=== PATIENT | male | born 1955 | race Caucasian/White ===

== ENCOUNTER 2020-07-14 10:01 | Outpatient (REF) | payer BC, SELFPAY ==
[2020-07-14 14:28] LABS: Alanine Aminotransferase 36 U/L (0-40); Albumin Level 4.2 g/dL (3.5-5.0); Alkaline Phosphatase 73 U/L (39-117); Anion Gap 11 (12-20); Aspartate Amino Transferase 27 U/L (5-37); Bilirubin Total 0.4 mg/dL (0.0-1.0); Blood Urea Nitrogen 9 mg/dL (9-16); Calcium 8.9 mg/dL (8.4-10.2); Carbon Dioxide 31 mmol/L (22-29); Chloride 101 mmol/L (96-108); Cholesterol 183 mg/dL; Estimated Glomerular Filt Rate > 60; Glucose Fasting 125 mg/dL (60-99); HDL Cholesterol 48 mg/dL; LDL Cholesterol Calculated 83 mg/dl; Potassium 4.1 mmol/l (3.3-5.1); Sodium 139 mmol/L (135-145); Total Protein 7.3 g/dL (6.5-8.0); Triglycerides 261 mg/dL
[2020-07-14 14:49] LABS: TSH reflex Free T4 1.91 mIU/mL (0.32-4.0); Vitamin D 25-OH Total 24.2 ng/mL (>30)
== END 2020-07-14 10:02 | disposition home or self-care (01) ==
LOC: HO.WFDLDS 10:01
PROVIDERS: Visit Provider Family Medicine
DX: F41.9 Anxiety disorder, unspecified (principal); E78.5 Hyperlipidemia, unspecified; E55.9 Vitamin D deficiency, unspecified; Z00.00 Encounter for general adult medical examination without abnormal findings
CPT/HCPCS: 80053; 80061; 82306; 84443

== ENCOUNTER → 2020-07-30 11:07 | Outpatient (BNVA) | payer BC, SELFPAY | PROVIDERS: PCP Family Medicine; Referring Provider Family Medicine; Visit Provider Nurse Practitioner Family | DX: Z76.89 Persons encountering health services in other specified circumstances (principal) ==

== ENCOUNTER → 2020-08-27 13:36 | Outpatient (BNVA) | payer BC, SELFPAY | PROVIDERS: PCP Family Medicine; Visit Provider Nurse Practitioner Family | DX: Z76.89 Persons encountering health services in other specified circumstances (principal) ==

== ENCOUNTER → 2020-12-02 12:56 | Outpatient (BNVA) | payer BC, SELFPAY | PROVIDERS: PCP Family Medicine; Visit Provider Nurse Practitioner Family ==

== ENCOUNTER 2020-12-16 13:41 | Outpatient (REF) | payer BC, SELFPAY ==
--- NOTE | ~2020-12-16 | US_ITS ---
EXAMINATION: US ABDOMEN COMPLETE CLINICAL INFORMATION: Abdominal gaseous distention. COMPARISON: None TECHNIQUE: Real-time imaging of the abdominal viscera. FINDINGS: PANCREAS: Obscured by bowel gas. ABDOMINAL AORTA: The proximal, mid, and distal segments are normal in caliber. INFERIOR VENA CAVA: Visualized portions are normal. LIVER: The liver contour is normal. Diffuse increased echogenicity. Probable focal fatty sparing adjacent to the gallbladder. No focal hepatic lesion. There is no intrahepatic biliary duct dilatation seen. GALLBLADDER: Normal. The gallbladder is physiologically distended without evidence of stones, sludge, polyps, wall thickening or pericholecystic fluid. COMMON BILE DUCT: Normal in caliber measuring 0.3 cm in diameter. RIGHT KIDNEY: Normal. No hydronephrosis. No renal calculi or focal parenchymal lesions. The kidney measures 10.4 cm in maximum dimension. LEFT KIDNEY: Normal. No hydronephrosis. No renal calculi or focal parenchymal lesions. The kidney measures 10.6 cm in maximum dimension. SPLEEN: Normal. The spleen measures 11.4 cm in maximum dimension. FREE FLUID: None. US/US abdomen complete IMPRESSION: 1. There is generalized increase in hepatic echotexture, consistent with fatty infiltration or hepatocellular disease. Please correlate clinically. Hypoechogenicity adjacent to the gallbladder probably reflecting focal fatty sparing. No focal hepatic mass or intrahepatic biliary duct dilatation is seen. 2. Pancreas obscured by bowel gas.
== END 2020-12-16 13:42 | disposition home or self-care (01) ==
LOC: HO.US 13:41
PROVIDERS: PCP Family Medicine; Visit Provider Nurse Practitioner Family
DX: R14.0 Abdominal distension (gaseous) (principal)
CPT/HCPCS: 76700

== ENCOUNTER 2020-12-24 10:25 | Outpatient (REF) | payer BC, SELFPAY ==
[2020-12-24 14:09] LABS: Hematocrit 41.9 % (42-52); Hemoglobin 14.3 g/dl (14.0-18.0); Mean Corpuscular HGB Conc 34.1 g/dl (31.0-36.0); Mean Corpuscular Hemoglobin 30.7 pg (27.0-33.0); Mean Corpuscular Volume 89.9 fL (80-98); Mean Platelet Volume 11.5 fL (9.4-12.4); Platelet Count 152 X10*3/uL (160-400); Red Blood Count 4.66 X10*6/uL (4.60-5.80); Red Cell Distribution Width 12.3 % (11.0-16.0); White Blood Count 7.9 X10*3/uL (4.8-10.8)
[2020-12-24 14:25] LABS: Alanine Aminotransferase 27 U/L (0-40); Albumin Level 4.4 g/dL (3.5-5.0); Alkaline Phosphatase 57 U/L (39-117); Anion Gap 12 (12-20); Aspartate Amino Transferase 26 U/L (5-37); Bilirubin Total 0.9 mg/dL (0.0-1.0); Blood Urea Nitrogen 15 mg/dL (9-16); Calcium 9.6 mg/dL (8.4-10.2); Carbon Dioxide 31 mmol/L (22-29); Chloride 102 mmol/L (96-108); Estimated Glomerular Filt Rate > 60; Glucose Random 116 mg/dL (60-115); Potassium 4.3 mmol/L (3.3-5.1); Sodium 141 mmol/L (135-145); Total Protein 7.4 g/dL (6.5-8.0)
== END 2020-12-24 10:26 | disposition home or self-care (01) ==
LOC: HO.WFDLDS 10:25
PROVIDERS: Visit Provider Nurse Practitioner Family
DX: K21.9 Gastro-esophageal reflux disease without esophagitis (principal); R14.0 Abdominal distension (gaseous)
CPT/HCPCS: 36415; 80053; 85027

== ENCOUNTER 2021-05-16 08:40 | Outpatient (REF) | payer BC, SELFPAY ==
[2021-05-16 12:40] LABS: Cholesterol 149 mg/dL; HDL Cholesterol 48 mg/dL; LDL Cholesterol Calculated 68 mg/dl; Triglycerides 169 mg/dL
== END 2021-05-16 08:41 | disposition home or self-care (01) ==
LOC: HO.WFDLDS 08:40
PROVIDERS: PCP Family Medicine; Visit Provider Family Medicine
DX: E78.5 Hyperlipidemia, unspecified (principal)
CPT/HCPCS: 36415; 80061

== ENCOUNTER 2021-09-06 08:07 | Outpatient (REF) | payer BC, SELFPAY ==
[2021-09-06 12:03] LABS: Alanine Aminotransferase 27 U/L (0-40); Albumin Level 4.1 g/dL (3.5-5.0); Alkaline Phosphatase 60 U/L (39-117); Anion Gap 11 (12-20); Aspartate Amino Transferase 25 U/L (5-37); Bilirubin Total 0.5 mg/dL (0.0-1.0); Blood Urea Nitrogen 12 mg/dL (9-16); Calcium 9.7 mg/dL (8.4-10.2); Carbon Dioxide 29 mmol/L (22-29); Chloride 105 mmol/L (96-108); Cholesterol 172 mg/dL; Estimated Glomerular Filt Rate > 60; Glucose Fasting 122 mg/dL (60-99); HDL Cholesterol 38 mg/dL; LDL Cholesterol Calculated 85 mg/dl; Potassium 4.3 mmol/L (3.3-5.1); Sodium 141 mmol/L (135-145); Total Protein 7.4 g/dL (6.5-8.0); Triglycerides 247 mg/dL
== END 2021-09-06 08:08 | disposition home or self-care (01) ==
LOC: HO.WFDLDS 08:07
PROVIDERS: Visit Provider Family Medicine
DX: Z00.00 Encounter for general adult medical examination without abnormal findings (principal); I10 Essential (primary) hypertension
CPT/HCPCS: 36415; 80048; 80053; 80061; 84443

== ENCOUNTER 2022-03-08 07:43 | Outpatient (REF) | payer BC, SELFPAY ==
[2022-03-08 11:42] LABS: Estimated Average Glucose 120 mg/dL; Hemoglobin A1c % 5.8 %
[2022-03-08 12:15] LABS: Prostate Specific Antigen Scr 1.53 ng/mL (<0.05-4.0); Vitamin D 25-OH Total 74.5 ng/mL (>30)
== END 2022-03-08 07:44 | disposition home or self-care (01) ==
LOC: HO.WFDLDS 07:43
PROVIDERS: PCP Family Medicine; Visit Provider Family Medicine
DX: E55.9 Vitamin D deficiency, unspecified (principal); R73.01 Impaired fasting glucose; Z12.5 Encounter for screening for malignant neoplasm of prostate
CPT/HCPCS: 36415; 82306; 83036; 84153

== ENCOUNTER 2022-05-26 08:25 | Outpatient (REF) | payer BC, SELFPAY ==
[2022-05-26 12:07] LABS: Cholesterol 162 mg/dL; HDL Cholesterol 42 mg/dL; LDL Cholesterol Calculated 91 mg/dl; Triglycerides 147 mg/dL
== END 2022-05-26 08:26 | disposition home or self-care (01) ==
LOC: HO.WFDLDS 08:25
PROVIDERS: Visit Provider Family Medicine
DX: Z00.00 Encounter for general adult medical examination without abnormal findings (principal); E78.5 Hyperlipidemia, unspecified
CPT/HCPCS: 36415; 80061

== ENCOUNTER 2022-08-28 07:56 | Outpatient (REF) | payer BC, SELFPAY ==
[2022-08-28 11:16] LABS: MANUAL DIFF FLAG NO
[2022-08-28 11:31] LABS: Basophils Percent Auto 0.1 % (0-2); Eosinophils Absolute Auto 0.1 X10*3/uL (0.0-0.4); Eosinophils Percent Auto 1.3 % (0-4); Hemoglobin 13.6 g/dl (14.0-18.0); Imm Gran Abs Auto 0.02 X10*3/uL (0.00-0.03); Imm Gran Pct Auto 0.2 % (0.0-0.4); Lymphocytes Absolute Auto 3.9 X10*3/uL (1.2-4.9); Lymphocytes Percent Auto 45.8 % (20-40); Mean Corpuscular Hemoglobin 30.6 pg (27.0-33.0); Mean Corpuscular Volume 90.1 fL (80.0-98.0); Mean Platelet Volume 11.2 fL (9.4-12.4); Monocytes Absolute Auto 0.5 X10*3/uL (0.1-1.2); Monocytes Percent Auto 6.2 % (2-11); Neutrophils Absolute Auto 3.9 x10*3/uL (2.0-8.3); Neutrophils Percent Auto 46.4 % (45-73); Platelet Count 182 X10*3/uL (160-400); Red Blood Count 4.44 X10*6/uL (4.60-5.80); Red Cell Distribution Width 11.9 % (11.0-16.0); White Blood Count 8.4 X10*3/uL (4.8-10.8)
[2022-08-28 11:48] LABS: Anion Gap 14 (12-20)
[2022-08-28 11:53] LABS: Alanine Aminotransferase 35 U/L (0-40); Albumin Level 4.4 g/dL (3.5-5.0); Alkaline Phosphatase 61 U/L (39-117); Aspartate Amino Transferase 28 U/L (5-37); Bilirubin Total 0.7 mg/dL (0.0-1.0); Calcium 9.7 mg/dL (8.4-10.2); Carbon Dioxide 27 mmol/L (22-29); Chloride 103 mmol/L (96-108); Estimated Glomerular Filt Rate > 60; Glucose Fasting 142 mg/dL (60-99); Potassium 3.9 mmol/L (3.3-5.1); Sodium 140 mmol/L (135-145); Total Protein 7.2 g/dL (6.5-8.0)
[2022-08-28 12:16] LABS: Prostate Specific Antigen Scr 1.15 ng/mL (<0.05-4.0)
[2022-08-28 12:46] LABS: Blood Urea Nitrogen 15 mg/dL (9-16)
== END 2022-08-28 07:57 | disposition home or self-care (01) ==
LOC: HO.WFDLDS 07:56
PROVIDERS: Visit Provider Family Medicine
DX: Z00.00 Encounter for general adult medical examination without abnormal findings (principal); Z12.5 Encounter for screening for malignant neoplasm of prostate
CPT/HCPCS: 36415; 80053; 84153; 84443; 85025

== ENCOUNTER 2022-10-13 08:34 | Outpatient (REF) | payer BC, SELFPAY ==
[2022-10-13 11:28] LABS: MANUAL DIFF FLAG NO
[2022-10-13 11:52] LABS: Basophils Percent Auto 0.1 % (0-2); Eosinophils Absolute Auto 0.1 X10*3/uL (0.0-0.4); Eosinophils Percent Auto 1.7 % (0-4); Hematocrit 41.5 % (42.0-52.0); Hemoglobin 13.8 g/dl (14.0-18.0); Imm Gran Abs Auto 0.01 X10*3/uL (0.00-0.03); Imm Gran Pct Auto 0.1 % (0.0-0.4); Immature Retic Fraction 14.4 % (2.3-13.4); Lymphocytes Absolute Auto 3.4 X10*3/uL (1.2-4.9); Lymphocytes Percent Auto 46.9 % (20-40); Mean Corpuscular HGB Conc 33.3 g/dl (31.0-36.0); Mean Corpuscular Hemoglobin 30.7 pg (27.0-33.0); Mean Corpuscular Volume 92.4 fL (80.0-98.0); Mean Platelet Volume 11.7 fL (9.4-12.4); Monocytes Absolute Auto 0.5 X10*3/uL (0.1-1.2); Monocytes Percent Auto 6.9 % (2-11); Neutrophils Absolute Auto 3.2 x10*3/uL (2.0-8.3); Neutrophils Percent Auto 44.3 % (45-73); Platelet Count 172 X10*3/uL (160-400); Red Blood Count 4.49 X10*6/uL (4.60-5.80); Red Cell Distribution Width 12.5 % (11.0-16.0); Retic HGB Equivalent 36.3 pg (30.0-35.0); Reticulocyte Percent 2.5 % (0.5-1.8); Reticulocytes Absolute 0.114 X10*6/uL (0.026-0.095); White Blood Count 7.2 X10*3/uL (4.8-10.8)
[2022-10-13 12:26] LABS: Iron 136 mcg/dL (45-160); Percent Iron Saturation 46 % (15-50); Total Iron Binding Capacity 294 mcg/dL (228-428); Unsaturated Iron Binding 158 ug/dL
[2022-10-13 12:41] LABS: Ferritin 497 ng/mL (20-250); Folate 13.3 ng/mL (> or = 4.0); Vitamin B12 255 pg/mL (200-900)
== END 2022-10-13 08:35 | disposition home or self-care (01) ==
LOC: HO.WFDLDS 08:34
PROVIDERS: Visit Provider Family Medicine
DX: Z00.00 Encounter for general adult medical examination without abnormal findings (principal); D64.9 Anemia, unspecified; E53.8 Deficiency of other specified B group vitamins
CPT/HCPCS: 36415; 82607; 82728; 82746; 83540; 85025; 85045

== ENCOUNTER → 2022-11-20 14:01 | Outpatient (REF) | payer BC, SELFPAY ==
--- NOTE | 2022-11-20 14:04 | CA_ITS ---
Acquisition Time: 2022-11-20 14:18:08 Total Exercise Time: 00:00:57 Test Indications: R07.9 - Chest pain, unspecified Medications: Protocol: JAGRUTI Max HR: 114 BPM 75% of Pred: 151 BPM Max BP: 158/078 mmHG Max Work Load: 2.7 METS Exercise stress test exercise with two attempts of Jagruti protocol 1 min 40 sec then 57 sec and unable to coordinate walking on treadmil, with mild SOB, no chest discomfort, with artifact but no noted arrythmia, with normotensive response to exercise, with nondiagnostic EKG for ischemia due to suboptimal heart rate and exercise time. Test reviewed with Dr. Wilks. Message sent to PCP with report and recommendation for a pharmacological nuclear stress test if warranted Referred By: Varinder Murillo Overread By: JAKE LLAMAS
== END ==
LOC: HO.CARD 14:01
PROVIDERS: PCP Family Medicine; Visit Provider Family Medicine
DX: R07.9 Chest pain, unspecified (principal)
CPT/HCPCS: 93017

== ENCOUNTER 2023-03-07 14:19 | Outpatient (AMB) | payer BC, SELFPAY ==
--- NOTE | 2023-03-07 14:35 | MHC.OFFVIS ---
Intake Vital Signs 03/07/23 14:36 Height 5 ft 11 in Weight 172 lb 6.424 oz BMI 24.0 BP 130/80 Blood Pressure Location Lt brachial Position Sitting Pulse 67 Intake Visit Reasons: Colonoscopy Screening Intake Note: Tr presents in office as a new.patient for colonoscopy screening PT CC: pt reports having some constipation pt denies any other GI Issues Accompanied by: Spouse Allergies amoxapine Adverse Reaction (Mild, Verified 03/14/23 14:10) rash HPI Colonoscopy Screening HPI Details LAST VISIT NOVEMBER OF 2020 (1) GERD (gastroesophageal reflux disease): ?Code(s): K21.9 - Gastro-esophageal reflux disease without esophagitis ?Qualifiers: ?Esophagitis presence:?without esophagitis? Qualified Code(s):?K21.9 - Gastro-esophageal reflux disease without esophagitis ?Plan - ELPIDIO Reaves-BC: Patient reports occasional acid reflux.? Reports to be taking his omeprazole.? Denies any change in his diet.? Reports to be avoiding dietary triggers.? I will see patient in the office next week.? Send him for lab work and H pylori testing.? Patient is agreeable to plan of care ?Code(s): R14.0 - Abdominal distension (gaseous) ?Plan - PINKY Reaves: Patient reports to have increase abdominal bloating despite taking simethicone.? Patient denies any change in his diet.? Was placed on a new medication in August, duloxetine.? I will see him next week in the office so I can examine him.? In the meantime I will order blood work an abdominal ultrasound to rule out any gallbladder issues.? Patient is agreeable to plan of care.? Verbalizes understanding of instructions.? He was given the opportunity to ask questions and all questions answered. TODAY'S VISIT Patient was sent to us by his PCP.? ? Patient denies any gastrointestinal symptoms at present.? Denies any personal or family history of gastrointestinal disease, colon polyps, or cancer.? Denies history of difficulty with sedation or anesthesia in the past.? Negative for history of sleep apnea.? Denies any history of cardiac, renal, pulmonary, or hepatic disease.?? No history of infectious? diseases like hepatitis A, B, C, HIV or tuberculosis.? Patient is not on any anticoagulation therapy. [facility] Surgical History History of appendectomy History of colonoscopy Family History Father Hx of type 1 diabetes mellitus Mother No problems noted. Social History Household Members: Spouse Housing: House Alcohol intake: current Alcohol intake frequency: a few times a week Alcohol type: beer, wine, hard liquor and other Patient Tobacco Use Status: Never used Tobacco e-Cigarette/Vaping Use: Never Used Second Hand Smoke Exposure: No service: No Current occupational status: retired Current occupational exposures/hazards: No Cognitive needs: No Hearing needs: No Vision needs: No Review of Systems Const Denies weight gain and Denies weight loss ENT Reports no additional complaints, Denies dysphagia and Denies odynophagia Card Reports no additional complaints Resp Reports no additional complaints GI Denies abdominal pain, Denies belching, Denies melena, Denies bloating, Denies change in bowel habits, Denies dysphagia, Denies excessive flatus, Denies dyspepsia, Denies heartburn, Denies diarrhea, Denies loose stools, Denies nausea, Denies odynophagia and Denies vomiting Reports no additional complaints Musc Reports no additional complaints Neuro Reports no additional complaints Psych Reports no additional complaints Endo Reports no additional complaints Physical Exam Vital Signs: Last Vital Signs Pulse 67 03/07/23 14:36 BP 130/80 03/07/23 14:36 BMI result Body Mass Index 24.0 Const General: healthy appearing, no acute distress and well developed Nutritional Appearance: well nourished Orientation/consciousness: patient oriented x3 HEENT Head: Yes normal to inspection, Yes normocephalic and Yes atraumatic Face and sinus: Yes normal facial exam Mouth: Normal oral and palatal mucosa present Throat: Yes posterior oropharynx normal, Yes tonsils normal and Yes uvula midline Eyes General: appearance normal, both eyes and all related structures Neck Neck: Yes normal visual inspection, Yes full ROM and Yes trachea midline Thyroid: Thyroid normal Resp Effort & Inspection: normal respiratory effort, able to speak in complete sentences, no tracheal deviation and symmetric chest movement Auscultation: clear to auscultation bilaterally Cardio Rate: regular rate Heart sounds: S1 normal heart sound present and S2 normal heart sound present GI Inspection: Yes normal to inspection and No distended Palpation (GI): Soft to palpation, not firm, nontender and No hepatosplenomegaly present Auscultation: normal bowel sounds General: Yes no CVA tenderness Back/Spine/Pelvis Back: no CVA tenderness Skin General skin exam: elasticity normal, turgor normal and dry skin Neuro General: patient oriented x3 Psych Appearance: grossly normal Mental Status: mental status grossly normal Speech and movement: Normal speech and movement present Affect: normal affect Assessment & Plan Assessment & Plan (1) Screening for colon cancer: Code(s): Z12.11 - Encounter for screening for malignant neoplasm of colon Plan: Patient denies any GI. Patient reports having symptoms of shortness of breath when mowing the lawn. Sent by PCP to welfare specialist. Patient has an appointment next week. We will wait for risk stratification before sending him for procedure. May book the procedure for June.? Denies any issues with anesthesia in the past.? Denies any history of sleep apnea.? No history infectious diseases in the past or present.? Not on any anticoagulation therapy.? No family or personal history of colon cancer or polyps.? Patient denies melena, hematochezia, unintentional weight loss or ribbon like stools.? Discussed at length the pre-procedure,? prep, diet & medications as well as what to expect prior, during and after the procedure.?? Stressed the importance of good bowel prep. ?Recommended the use of Vaseline or Calmoseptine OTC & baby wipes with bowel movements to promote comfort.? ?Patient verbalizes understanding and agrees to plan of care.? He was given the opportunity to ask questions and all questions answered.? We will see him after the procedure.? Medications: New bisacodyl (Dulcolax (bisacodyl)) take 2 tabs at noon the day before your colonoscopy 10 mg (2 x 5 mg) PO ONCE 2 tabs 0RF 1 day Z12.11 - Encounter for screening for malignant neoplasm of colon polyethylene glycol 3350 (Miralax) As directed by gastroenterology department at [facility] 238 grams PO ONCE 238 grams 0RF Z12.11 - Encounter for screening for malignant neoplasm of colon Discontinued simethicone Discontinued Reason: Patient no longer taking 125 mg PO BID-QID PRN 120 caps 3RF abdominal distention K21.9 - Gastro-esophageal reflux disease without esophagitis Coding Level of Care Code Est Pt Level 3 (55679) Diagnoses Screening for colon cancer Z12.11 Time Spent (min) 35 Comment 25 minutes spent with patient and additional 10 minutes spent reviewing his records
[2023-03-07 14:36] VITALS: BP 130/80; PULSE 67; BMI 24.0
== END 2023-03-07 15:34 | disposition home or self-care (01) ==
PROVIDERS: PCP Family Medicine; Visit Provider Nurse Practitioner Family
DX: Z01.818 Encounter for other preprocedural examination (principal); Z12.11 Encounter for screening for malignant neoplasm of colon
CPT/HCPCS: S0285

== ENCOUNTER → 2023-03-07 14:19 | Outpatient (BNVA) | payer BC, SELFPAY | PROVIDERS: PCP Family Medicine; Visit Provider Nurse Practitioner Family ==

== ENCOUNTER 2023-03-14 14:01 | Outpatient (AMB) | payer BC, SELFPAY ==
--- NOTE | 2023-03-14 14:07 | MHC.OFFVIS ---
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 MassPat verified. Partial refill upon request. 30 days bisacodyl (Dulcolax (bisacodyl)) 10 mg (2 x 5 mg) PO ONCE 1 day clonidine HCl 0.05 mg PO DAILY PRN duloxetine 60 mg PO DAILY flu vacc [id number](65yr up)-PF mL IM ibuprofen 1 to 2 tabs orally every 8 hours PRN; 90 days lisinopril 10 mg PO BID 90 days omeprazole 20 mg PO DAILY 90 days polyethylene glycol 3350 (Miralax) 238 grams PO ONCE sildenafil 100 mg PO DAILY PRN 30 days simvastatin 20 mg PO DAILY 90 days HPI HPI Comments History of Present Illness Details Tr is here for consultation regarding chest pain. He states that he has had some vague discomfort in the chest for the last several months. Last winter when he was cleaning up snow he could feel some vague discomfort but he is not really able to describe this any further. With other physical activities also he has noticed this sensation. Possibly angina. However, in the last few months, he has not had any further symptoms but he also states that he is not been as physically active as in the past. He came for stress test. In spite of the fact that he states he is able to clean up snow, do lawn work extra, he was able to only do 1 minute and 40 seconds on the Yevgeniy protocol due to inability to walk on the treadmill but he did not have any chest discomfort at that time. [facility] Surgical History History of appendectomy History of colonoscopy Family History Father Hx of type 1 diabetes mellitus Mother No problems noted. Social History Household Members: Spouse Housing: House Alcohol intake: current Alcohol intake frequency: a few times a week Alcohol type: beer, wine, hard liquor and other Patient Tobacco Use Status: Never used Tobacco e-Cigarette/Vaping Use: Never Used Second Hand Smoke Exposure: No service: No Current occupational status: retired Current occupational exposures/hazards: No Cognitive needs: No Hearing needs: No Vision needs: No Review of Systems Const Denies chills, Denies daytime sleepiness, Denies fatigue, Denies fever(s), Denies frequent falls, Denies night sweats, Denies snoring, Denies weakness, Denies weight gain and Denies weight loss Eyes Denies loss of vision ENT Denies dizziness and Denies hearing loss Card Denies chest pain, Denies chest pain with activity, Denies syncope, Denies rapid heart rate, Denies edema, Denies claudication, Denies leg edema, Denies lightheadedness, Denies palpitations, Denies dyspnea, Denies dyspnea on exertion and Denies orthopnea Resp Denies cough, Denies excessive phlegm production, Denies dyspnea, Denies dyspnea on exertion, Denies snoring and Denies wheezing GI Denies abdominal pain, Denies hematochezia, Denies change in bowel habits, Denies change in stool character, Denies heartburn, Denies nausea and Denies vomiting Denies hematuria, Denies dysuria and Denies urinary frequency Musc Denies arthralgias, Denies muscle weakness, Denies numbness and Denies tingling Skin/Breast Denies nail changes and Denies rash Neuro Denies Abnormal speech present, Denies dizziness, Denies syncope, Denies frequent falls, Denies loss of vision, Denies memory loss, Denies numbness, Denies tingling and Denies weakness Psych Denies depression and Denies memory loss Endo Denies fatigue and Denies palpitations Aller/Immun Denies wheezing Physical Exam Vital Signs: Last Vital Signs Pulse 78 03/14/23 14:08 BP 122/70 03/14/23 14:08 BMI result Body Mass Index 24.3 Const General: comfortable and no acute distress Orientation/consciousness: patient oriented x3 HEENT Other: Unremarkable Head: Yes normal to inspection Neck Neck: Yes normal visual inspection Chest Chest palpation & inspection: normal inspection of the chest Resp Auscultation: clear to auscultation bilaterally Cardio Palpation: normal PMI Heart sounds: S1 normal heart sound present, S2 normal heart sound present, no gallops, no murmurs and no rubs GI Palpation (GI): Soft to palpation Back/Spine/Pelvis Other: unremarkable Skin General skin exam: no rashes or lesions noted Neuro General: patient oriented x3 Speech: No Abnormal speech present Extrem General: Yes normal to inspection Psych Mental Status: mental status grossly normal Assessment & Plan Assessment & Plan (1) Chest pain: Code(s): R07.9 - Chest pain, unspecified Plan His symptoms are probably anginal nature, but difficult to assess as he states they resolved completely and he has not had anything in the last few months. Also he is not doing as much physical activity and hence that might play some role. Any case he needs further workup. In the exercise stress test he could not do adequately and stopped in a very short time as he was not able to coordinate walking on the treadmill. Hence we will do a pharmacological stress test with Lexiscan. Echocardiogram will also need to be completed. Follow-up in a few weeks time. In the interim, if any further episodes of chest discomfort, advised to call 911 for immediate help. Otherwise, in his medications, advised to avoid sildenafil. Discussed with significant other who came for appointment. Orders: Orders CA lexiscan stress w gerhard Today R07.9 - Chest pain, unspecified CA echo transthoracic complete Today I25.10 - Atherosclerotic heart disease of [place] coronary artery without angina pectoris, R07.9 - Chest pain, unspecified NM cardiolite stress test Today R07.9 - Chest pain, unspecified Medications: Changed From clonidine HCl 0.05 mg (1/2 x 0.1 mg) PO DAILY 30 days PRN 30 tabs 0RF anxiety To clonidine HCl 0.05 mg PO DAILY PRN From duloxetine 60 mg PO DAILY 30 days 30 caps 3RF F41.9 - Anxiety disorder, unspecified To duloxetine 60 mg PO DAILY F41.9 - Anxiety disorder, unspecified Coding Level of Care Code New Pt Level 4 (02661) Diagnoses Chest pain R07.9
[2023-03-14 14:08] VITALS: BP 122/70; PULSE 78; BMI 24.3
== END 2023-03-14 15:00 | disposition home or self-care (01) ==
PROVIDERS: Visit Provider Internal Medicine
DX: R07.9 Chest pain, unspecified (principal)
CPT/HCPCS: 99204

== ENCOUNTER → 2023-03-14 14:01 | Outpatient (BNVA) | payer BC, SELFPAY | PROVIDERS: Visit Provider Internal Medicine ==

== ENCOUNTER → 2023-03-21 09:49 | Outpatient (REF) | payer BC, SELFPAY ==
--- NOTE | 2023-03-21 09:54 | CA_ITS ---
Transthoracic Echocardiogram Amended Patient (Last, First, Middle): Tr Hunter Ishaan Gender: Male Date of : 1955 Age: 67 Procedure Date: 03/21/2023 Procedure Type: Transthoracic Echocardiogram Location: OP Height: 180.34 cm Weight: 78.02 kg BSA: 1.98 m2 Heart Rate: 57 bpm BP: 125 / 80 mmHg [place]: BOUCHRA Referring MD: Brennan Lancaster MD Symptoms: I25.10 - Atherosclerotic heart disease of [place] coronary artery without... Study Quality: Fair ECG Rhythm: Bradycardia Conclusions: - The left ventricular systolic function is normal. The calculated ejection fraction is 57% by biplane method. - No obvious valvular pathology seen on this study. Findings Left Ventricle Normal left ventricular cavity size. There is normal left ventricular wall thickness. The left ventricular systolic function is normal. The calculated ejection fraction is 57% by biplane method. There is no evidence of regional wall motion abnormalities. Diastolic function is normal for age. LV peak GLS -18.6%. Right Ventricle Normal right ventricular cavity size and systolic function. Atria Both atria are normal in size. Aortic Valve There is a normal trileaflet aortic valve. There is mild calcification of the aortic valve. There is no aortic valve stenosis. There is no aortic valve regurgitation. Mitral Valve There is mild mitral annular calcification. There is mild mitral valve regurgitation. There is no mitral valve stenosis. Pulmonic Valve There is trace pulmonic valve regurgitation. Tricuspid Valve Normal tricuspid valve structure. There is trace tricuspid valve regurgitation. There is no evidence of pulmonary hypertension. Great Vessels The asc aorta is normal in size. Venous The inferior vena cava is normal in size and collapses greater than 50% with inspiration. Pericardium/Pleural There is no evidence of pericardial effusion. Prior Study Comparison No prior study available for comparison. Recommendations, Care & Conclusions No obvious valvular pathology seen on this study. Measurements 2D Linear Measurements IVSd: 0.95 0.6-0.9/0.6-1.0 cm LVIDd: 4.74 3.9-5.3/4.2-5.9 cm LVIDd Index: 2.39 2.4-3.2/2.2-3.1 cm/m2 LVIDs: 2.71 2.0-3.6 cm LVPWd: 0.89 0.7-1.1 cm LA Diam: 3.70 2.7-3.8/3.0-4.0 cm LAIDs Index: 1.87 1.5-2.3 cm/m2 LV Mass: 185.26 67-162/88-224 g LV Mass Index: 93.57 43-95/49-115 g/m2 LVOT Diam: 2.00 3.0+(-)1.3 cm 2D Volumes LA Vol: 23.30 2D Systolic Function EF 4C: 57.30 >55% EF 2C: 57.60 >55% EF BiP: 57.00 >55% Mitral Valve MV Pk E: 0.67 MV PK A: 0.84 MV Decel Time: 296.00 E/A: 0.80 E'Lateral: 12.00 E'Medial: 8.27 E/E' Med: 8.10 E/E' Lat: 5.60 PHT: 87.00 MVA PHT: 2.53 Decel [place]: 2.27 Aortic Valve AoV Pk Wilfrido: 1.25 AoV Mn Wilfr[place]: 0.89 AoV VTI: 0.29 AoV Pk Grad: 6.00 Aov Mn Grad: 4.00 PRANAV Cont.VTI: 2.34 LVOT LVOT Pk [place]fr[place]: 0.93 LVOT Mn [place]fr[place]: 0.61 LVOT VTI: 0.21 LVOT Pk Grad: 3.00 LVOT Mn Grad: 2.00 LVOT Diam: 2.00 LVOT Area: 3.14 Diastolic Function MV Pk E: 0.67 MV Pk A: 0.84 E/A: 0.80 E'Medial: 8.27 E/E' Med: 8.10 E' Laterial: 12.00 E/E' Lat: 5.60 Right Ventricle TAPSE (mm): 20.00 TVS' Wilfrido: 10.20 Tricuspid Valve RA Press: 3.00 Great Vessels Aorta Sinus of Valsalva: 3.30 2.0-3.5 cm Ao Asc: 3.00 2.1-3.4 cm Pulmonary Valve PV Pk Wilfrido: 1.07 Peak PV Grad: 5.00 Updated in Other Vendor System with Status of Final Brennan Lancaster MD electronically signed on 03/25/2023 2:20:30 PM with status of Final
== END ==
LOC: HO.CARD 09:49
PROVIDERS: PCP Family Medicine; Visit Provider Internal Medicine
DX: R07.9 Chest pain, unspecified (principal); I25.10 Atherosclerotic heart disease of native coronary artery without angina pectoris
CPT/HCPCS: 93306; 93356

== ENCOUNTER → 2023-03-21 09:54 | Outpatient (BNV) | payer BC, SELFPAY | PROVIDERS: PCP Family Medicine; Visit Provider Internal Medicine | DX: I25.10 Atherosclerotic heart disease of native coronary artery without angina pectoris (principal); I34.0 Nonrheumatic mitral (valve) insufficiency | CPT/HCPCS: 93306 ==

== ENCOUNTER 2023-03-28 08:48 | Outpatient (REF) | payer BC, SELFPAY ==
[2023-03-28 11:29] LABS: MANUAL DIFF FLAG NO
[2023-03-28 11:42] LABS: Basophils Percent Auto 0.1 % (0-2); Eosinophils Absolute Auto 0.1 X10*3/uL (0.0-0.4); Eosinophils Percent Auto 1.8 % (0-4); Hematocrit 36.9 % (42.0-52.0); Hemoglobin 12.3 g/dl (14.0-18.0); Imm Gran Abs Auto 0.01 X10*3/uL (0.00-0.03); Imm Gran Pct Auto 0.1 % (0.0-0.4); Immature Retic Fraction 14.3 % (2.3-13.4); Lymphocytes Absolute Auto 3.6 X10*3/uL (1.2-4.9); Lymphocytes Percent Auto 49.7 % (20-40); Mean Corpuscular HGB Conc 33.3 g/dl (31.0-36.0); Mean Corpuscular Hemoglobin 30.7 pg (27.0-33.0); Mean Platelet Volume 11.8 fL (9.4-12.4); Monocytes Absolute Auto 0.4 X10*3/uL (0.1-1.2); Monocytes Percent Auto 5.6 % (2-11); Neutrophils Absolute Auto 3.1 x10*3/uL (2.0-8.3); Neutrophils Percent Auto 42.7 % (45-73); Platelet Count 158 X10*3/uL (160-400); Red Blood Count 4.01 X10*6/uL (4.60-5.80); Red Cell Distribution Width 12.6 % (11.0-16.0); Retic HGB Equivalent 35.8 pg (30.0-35.0); Reticulocyte Percent 2.2 % (0.5-1.8); Reticulocytes Absolute 0.087 X10*6/uL (0.026-0.095); White Blood Count 7.3 X10*3/uL (4.8-10.8)
[2023-03-28 11:59] LABS: Appearance Urine Clear; Color Urine Yellow; Glucose Urine UA Negative (Negative); Leukocyte Esterase Urine Negative (Negative); Nitrite Urine Negative (Negative); Specific Gravity - Urine 1.015 (1.005-1.025); Urine Blood Negative (Negative); Urine Ketones Negative (Negative); Urine Protein Negative (Neg-Trace)
[2023-03-28 12:07] LABS: Anion Gap 14 (12-20); Blood Urea Nitrogen 15 mg/dL (9-16); Calcium 9.8 mg/dL (8.4-10.2); Carbon Dioxide 28 mmol/L (22-29); Chloride 101 mmol/L (96-108); Estimated Glomerular Filt Rate > 60; Glucose Random 116 mg/dL (60-115); Iron 82 mcg/dL (45-160); Percent Iron Saturation 30 % (15-50); Potassium 4.2 mmol/L (3.3-5.1); Sodium 139 mmol/L (135-145); Total Iron Binding Capacity 270 mcg/dL (228-428); Unsaturated Iron Binding 188 ug/dL
[2023-03-28 12:27] LABS: Creatinine Urine 179.69 mg/dL; Microalbum/Creatinine Ratio Ur 11.6 ug/mg cr
[2023-03-28 12:39] LABS: Folate 11.1 ng/mL (> or = 4.0); Vitamin B12 284 pg/mL (200-900)
== END 2023-03-28 08:49 | disposition home or self-care (01) ==
LOC: HO.WFDLDS 08:48
PROVIDERS: Visit Provider Family Medicine
DX: Z00.00 Encounter for general adult medical examination without abnormal findings (principal); E53.8 Deficiency of other specified B group vitamins; I10 Essential (primary) hypertension; D64.9 Anemia, unspecified
CPT/HCPCS: 36415; 80048; 81003; 82043; 82607; 82746; 83540; 85025; 85045

== ENCOUNTER 2023-04-06 13:12 | Outpatient (AMB) | payer BC, SELFPAY ==
--- NOTE | 2023-04-06 13:44 | A.OFFPC_ITS ---
Vital Signs 04/06/23 13:45 Height 5 ft 11 in Weight 176 lb 2 oz BMI 24.6 BP 104/60 Blood Pressure Location Lt brachial Position Sitting Respiration 12 Pulse 79 Pulse Source Pulse Oximeter Temp 97.2 F Temp Source Temporal Artery Scan Pulse Oximetry (%) 98 Oxygen Delivery Method Room Air Intake Visit Reasons: f/u chronic conditions Intake Note: Patient would like a new script for duloxetine due to refills being done. Compressor Service Technician Required: No Accompanied by: Self / Same As Patient Allergies amoxapine Adverse Reaction (Mild, Verified 04/06/23 13:51) rash Tobacco use date assessed: 12/19/21 Fall risk assessment: No Falls in past year Last assessed Fall Risk: 04/06/23 Dental Screening Dental Screen Date: 04/06/23 Did you have a dental visit in the last 12 months?: No Did you have a dental problem in the last 6 months where you did not have access to dental care?: No Was dental information given to patient?: Patient has dentist HPI f/u chronic conditions HPI Details 67 y/o male presents to f/u chronic conditions. Last A1c 12/28/22 was 5.9%. A1c today 04/06/23 5.9%. Had seen Dr. Lancaster 03/14/23 for chest pain. Planned to do a pharmacological stress test with mary - he had been unable to do the exercise stress test. They had also ordered an echocardiogram. Echocardiogram 03/21/23 showed no obvious valvular pathology. Pt reports ongoing exertional chest pain today. [facility] Medical History No pertinent past medical history Surgical History History of appendectomy History of colonoscopy Family History Father Hx of type 1 diabetes mellitus Mother No problems noted. Family/Other Diabetes 1.5, managed as type 2 Family/Other Pancreatic cancer Family/Other Stented coronary artery Sister Cardiovascular disease Sister S/P triple vessel bypass Social History Household Members: Spouse Housing: House Alcohol intake: current Alcohol intake frequency: a few times a week Alcohol type: beer, wine, hard liquor and other Patient Tobacco Use Status: Never used Tobacco e-Cigarette/Vaping Use: Never Used Second Hand Smoke Exposure: No service: No Current occupational status: retired Current occupational exposures/hazards: No Cognitive needs: No Hearing needs: No Vision needs: No Questionnaire Thrive Questionnaire Date Thrive assessed: 09/05/22 MEGHANN-7 AMB Questionnaire MEGHANN-7 Date MEGHANN - 7 assessed: 06/01/21 Source: Developed by Drs. Lucio Adams, Melisa Kline, Paulo Ryan and colleagues, with an educational iris from [employer]. Review of Systems Const Denies chills, Denies fatigue, Denies fever(s), Denies headache(s) and Denies weakness ENT Denies dizziness and Denies headache(s) Card Denies chest pain, Denies lightheadedness, Denies dyspnea and Denies other (Palpitations) Resp Denies cough, Denies dyspnea, Denies wheezing and Denies other ( shortness of breath) Musc Denies numbness and Denies tingling Neuro Denies dizziness, Denies headache(s), Denies numbness, Denies tingling, Denies paresthesias and Denies weakness Psych Denies anxiety and Denies depression Endo Denies fatigue Aller/Immun Denies wheezing Physical exam (Primary Care) Vital Signs: Last Vital Signs Temp 97.2 F 04/06/23 13:45 Pulse 79 04/06/23 13:45 Resp 12 04/06/23 13:45 BP 104/60 04/06/23 13:45 Pulse Ox 98 04/06/23 13:45 Oxygen Delivery Method Room Air 04/06/23 13:45 BMI result Body Mass Index 24.6 Tobacco/Smoking Status: Tobacco use Status Tobacco use date assessed 12/19/21 04/06/23 13:45 Patient Tobacco Use Status Never used Tobacco 04/06/23 13:45 e-Cigarette/Vaping Use Never Used 04/06/23 13:45 Thrive Assessment: Date of Thrive Assessment Date Thrive assessed 09/05/22 04/06/23 13:45 Const General: no acute distress and well developed Nutritional Appearance: well nourished Orientation/consciousness: patient oriented x3 HENMT Head: Yes normocephalic and Yes atraumatic Eyes General: appearance normal, both eyes and all related structures Pupils: Equal, round and reactive pupils present EOM: EOMs intact bilaterally Resp Effort & Inspection: normal respiratory effort Auscultation: clear to auscultation bilaterally Cardio Rate: regular rate Rhythm: regular rhythm Heart sounds: S1 normal heart sound present, S2 normal heart sound present, no gallops, no murmurs and no rubs Neuro General: patient oriented x3 and gait normal Cranial nerves: Yes Equal, round and reactive pupils present Psych Affect: normal affect Results AMB Hemoglobin A1c AMB Hemoglobin A1c 5.9 % Last Edit by Concha Hunt MA on 04/06/23 14:12 Results Reviewed Results Reviewed: Laboratory Last Values Hgb A1c (Clinic) 5.9 % (4.0-6.0) 04/06/23 14:11 Assessment and Plan Assessment & Plan (1) Chest pain: Code(s): R07.9 - Chest pain, unspecified Plan: Still has ongoing exertional chest pain and has ongoing workup with Cardiology. Lexiscan myocardial perfusion imaging is scheduled with pharmacologic stress as he did not tolerate treadmill test. Follow-up with Cardiology as recommended (2) Pre-diabetes: Code(s): R73.03 - Prediabetes Plan: A1c 5.9% unchanged from prior check a few months ago. Encouraged diet lower in sugars and starches. Patient mildly resistant to further change but understands eating carbohydrates in moderation. (3) Essential hypertension: Code(s): I10 - Essential (primary) hypertension Plan: Blood pressure is a little low today but he has no symptoms Continue current medication regimen Hydrate well Medications: Changed From duloxetine 60 mg PO DAILY F41.9 - Anxiety disorder, unspecified To duloxetine 60 mg PO DAILY 90 days 90 caps 2RF F41.9 - Anxiety disorder, unspecified Discontinued sildenafil administer 30 minutes to 4 hours before activity. partial refill upon request Discontinued Reason: Doctor's Order 100 mg PO DAILY 30 days PRN 6 tabs 4RF sexual activity Coding Level of Care Code Est Pt Level 4 (36601) Diagnoses Chest pain R07.9 Pre-diabetes R73.03 Essential hypertension I10
[2023-04-06 13:45] VITALS: BP 104/60; PULSE 79; RESP 12; TEMP 36.2; O2SAT 98; BMI 24.6
== END 2023-04-06 14:35 | disposition home or self-care (01) ==
PROVIDERS: Visit Provider Family Medicine
DX: R07.9 Chest pain, unspecified (principal); R73.03 Prediabetes; I10 Essential (primary) hypertension
CPT/HCPCS: 99214

== ENCOUNTER → 2023-04-09 07:54 | Outpatient (REF) | payer BC, SELFPAY ==
--- NOTE | ~2023-04-09 | NM_ITS ---
Myocardial perfusion study Indication: Chest pain to evaluate for myocardial ischemia Technique: The patient was brought in for a Lexiscan perfusion study on 04/09/2023. Patient performed low-level exercise and was injected 0.4 mg of Lexiscan intravenously. Within a minute of injection, 30 mCi of sestamibi was given intravenously. Images were obtained using the SPECT gamma camera interlaced with the gating device. Images were obtained in supine position. Resting perfusion study was performed on 04/10/2023. Patient was administered 30 mCi of sestamibi intravenously at rest. Images were then obtained in supine position. Images obtained with and without CT attenuation. Total DLP 80 mGy-cm Images were processed with the software and compared side to side in short axis, horizontal long axis and vertical long axis views. Findings: The stress perfusion study showed non attenuated images were suggestive of moderately reduced uptake in the inferior inferoseptal wall of the LV myocardium. Remainder of the LV myocardium is normally perfused attenuation corrected images also show mildly reduced uptake in the inferior inferoseptal wall of the LV myocardium.. The gated study shows mildly reduced LV systolic function with calculated LVEF of 47%. LV cavity is mildly dilated size. The gated study shows reduced wall thickening and contraction of inferior inferoseptal segments. Resting study shows normalize uptake in the inferior inferoseptal wall. Attenuated as well as non corrected images. Gating at rest reveals normal systolic wall motion with ejection fraction at 56%. The findings are consistent with moderately large area of moderate intensity reversible defect suggestive of ischemia in RCA territory. NM/NM cardiolite stress test Impression: 1. Myocardial perfusion imaging study shows moderate intensity RCA territory ischemia 2. Gated LVEF is 47% with stress and 56% with rest 3. Transient ischemic dilatation present EKG is nondiagnostic for ischemia
--- NOTE | 2023-04-09 07:57 | CA_ITS ---
Acquisition Time: 2023-04-09 08:00:16 Total Exercise Time: 00:02:00 Test Indications: CP Medications: SEE H Protocol: LEXISCAN Max HR: 093 BPM 61% of Pred: 151 BPM Max BP: 138/080 mmHG Max Work Load: 1.0 METS Pharmacolgoical stress test with Lexiscan injection while sitting and kicking their legs, without anginal symptoms, without arrhythmias, with normotensive response to injection, with nondiagnositic EKGs. Nuclear images pending. Test reviewed with Dr. Montanez. Referred By: Carmen Montanez Overread By: CARMEN MONTANEZ
== END ==
LOC: HO.CARD 07:54
PROVIDERS: PCP Family Medicine; Visit Provider Internal Medicine
DX: R07.9 Chest pain, unspecified (principal)
CPT/HCPCS: 78452; 93017; A9500; J0280; J2785

== ENCOUNTER → 2023-04-09 07:57 | Outpatient (BNV) | payer BC, SELFPAY | PROVIDERS: PCP Family Medicine; Visit Provider Internal Medicine | DX: I25.10 Atherosclerotic heart disease of native coronary artery without angina pectoris (principal) | CPT/HCPCS: 78452; 93016; 93018 ==

== ENCOUNTER 2023-05-04 07:04 | Outpatient (REF) | payer BC, SELFPAY ==
[2023-05-04 11:23] LABS: MANUAL DIFF FLAG NO
[2023-05-04 11:38] LABS: Basophils Percent Auto 0.1 % (0-2); Eosinophils Absolute Auto 0.1 X10*3/uL (0.0-0.4); Eosinophils Percent Auto 1.7 % (0-4); Hematocrit 39.2 % (42.0-52.0); Hemoglobin 13.4 g/dl (14.0-18.0); Imm Gran Abs Auto 0.02 X10*3/uL (0.00-0.03); Imm Gran Pct Auto 0.3 % (0.0-0.4); Lymphocytes Absolute Auto 3.3 X10*3/uL (1.2-4.9); Lymphocytes Percent Auto 43.6 % (20-40); Mean Corpuscular HGB Conc 34.2 g/dl (31.0-36.0); Mean Corpuscular Hemoglobin 30.6 pg (27.0-33.0); Mean Corpuscular Volume 89.5 fL (80.0-98.0); Mean Platelet Volume 11.6 fL (9.4-12.4); Monocytes Absolute Auto 0.6 X10*3/uL (0.1-1.2); Monocytes Percent Auto 7.9 % (2-11); Neutrophils Absolute Auto 3.5 x10*3/uL (2.0-8.3); Neutrophils Percent Auto 46.4 % (45-73); Platelet Count 159 X10*3/uL (160-400); Red Blood Count 4.38 X10*6/uL (4.60-5.80); Red Cell Distribution Width 12.4 % (11.0-16.0); White Blood Count 7.6 X10*3/uL (4.8-10.8)
[2023-05-04 11:41] LABS: INTERNATIONAL NORM RATIO 0.9 (0.9-1.1); Prothrombin Time 10.8 SEC (11.1-13.3)
[2023-05-04 11:50] LABS: Anion Gap 13 (12-20); Blood Urea Nitrogen 13 mg/dL (9-16); Calcium 9.8 mg/dL (8.4-10.2); Carbon Dioxide 30 mmol/L (22-29); Chloride 104 mmol/L (96-108); Estimated Glomerular Filt Rate > 60; Glucose Random 110 mg/dL (60-115); Potassium 4.7 mmol/L (3.3-5.1); Sodium 142 mmol/L (135-145)
== END 2023-05-04 07:05 | disposition home or self-care (01) ==
LOC: HO.WFDLDS 07:04
PROVIDERS: Visit Provider Internal Medicine
DX: R07.9 Chest pain, unspecified (principal); R94.39 Abnormal result of other cardiovascular function study; F41.8 Other specified anxiety disorders; E78.5 Hyperlipidemia, unspecified
CPT/HCPCS: 36415; 80048; 85025; 85610

== ENCOUNTER → 2023-05-15 23:59 | Outpatient (BNV) | payer BC, SELFPAY | PROVIDERS: PCP Family Medicine; Visit Provider Internal Medicine Cardiovascular Disease | DX: I20.8 Other forms of angina pectoris (principal); R93.1 Abnormal findings on diagnostic imaging of heart and coronary circulation | CPT/HCPCS: 93458; 93571; 99152 ==

== ENCOUNTER 2023-05-29 14:25 | Outpatient (AMB) | payer BC, SELFPAY ==
[2023-05-29 14:44] VITALS: BP 104/62; PULSE 52; BMI 25.1
--- NOTE | 2023-05-29 14:44 | A.OFFVIS_ITS ---
Intake Vital Signs 05/29/23 14:44 Height 5 ft 11 in Weight 179 lb 14.355 oz BMI 25.1 BP 104/62 Blood Pressure Location Lt brachial Position Sitting Pulse 52 Pulse Source Pulse Oximeter Intake Visit Reasons: Follow up post cardiac cath Intake Note: f/u after cath Field Service Manager: Field Service Manager Present Accompanied by: Spouse Allergies amoxapine Adverse Reaction (Mild, Verified 05/29/23 14:46) rash Medication List - Last Reconciled 05/29/23 by Shelbi Bradford, TIER OVER-C alprazolam 0.5 mg AM and 1.0 mg PM PO 2 times a day PRN; 45 tabs per 30 days. MassPat verified. Partial refill upon request. 30 days amlodipine 5 mg PO DAILY aspirin 81 mg PO DAILY clopidogrel 75 mg PO DAILY duloxetine 60 mg PO DAILY 90 days flu vacc [id number](65yr up)-PF mL IM ibuprofen 1 to 2 tabs orally every 8 hours PRN; 90 days metoprolol succinate ER (Toprol XL) 50 mg PO DAILY nitroglycerin 0.4 mg sublingual Q5M PRN polyethylene glycol 3350 (Miralax) 238 grams PO ONCE simvastatin 20 mg PO DAILY 90 days HPI Follow up post cardiac cath HPI Details Tr is a 67-year-old male past medical history of hypertension, pre diabetes who recently reported chest discomfort on exertion, had abnormal nuclear stress test followed by cardiac catheterization showing significant RCA stenosis which is being managed medically. He now presents for follow-up. Today he reports that he has not been getting chest discomfort with exertion since starting his medications. He has been doing only light activities. He denies shortness of breath, palpitations, dizziness, presyncope, syncope, PND, orthopnea or edema. He is taking meds as directed. is present. Right radial catheterization site well healed. [facility] Medical History No pertinent past medical history Surgical History History of appendectomy History of colonoscopy Family History Father Hx of type 1 diabetes mellitus Mother No problems noted. Family/Other Diabetes 1.5, managed as type 2 Family/Other Pancreatic cancer Family/Other Stented coronary artery Sister Cardiovascular disease Sister S/P triple vessel bypass Social History Household Members: Spouse Housing: House Alcohol intake: current Alcohol intake frequency: a few times a week Alcohol type: beer, wine, hard liquor and other Patient Tobacco Use Status: Never used Tobacco e-Cigarette/Vaping Use: Never Used Second Hand Smoke Exposure: No service: No Current occupational status: retired Current occupational exposures/hazards: No Cognitive needs: No Hearing needs: No Vision needs: No Review of Systems Const All systems reviewed & are unremarkable except as noted in HPI and below Reports fatigue ENT Denies dizziness Card Denies chest pain, Denies chest pain at rest, Denies chest pain with activity, Denies rapid heart rate, Denies pedal edema, Denies edema, Denies leg edema, Denies lightheadedness, Denies palpitations, Denies dyspnea, Denies dyspnea on exertion and Denies orthopnea Resp Denies cough, Denies dyspnea and Denies dyspnea on exertion GI Denies hematochezia and Denies change in stool character Musc Denies abnormal gait, Denies limited range of motion, Denies muscle cramps, Denies muscle weakness, Denies numbness, Denies radiating pain into limb, Denies stiffness and Denies tingling Neuro Denies abnormal gait, Denies dizziness, Denies numbness and Denies tingling Endo Reports fatigue and Denies palpitations Physical Exam Vital Signs: Last Vital Signs Pulse 52 05/29/23 14:44 BP 104/62 05/29/23 14:44 BMI result Body Mass Index 25.1 Const General: cooperative, healthy appearing, comfortable and no acute distress Orientation/consciousness: patient oriented x3 Neck Neck: Yes normal visual inspection Resp Effort & Inspection: normal respiratory effort Auscultation: clear to auscultation bilaterally, no crackles, no rales, no rhonchi and no wheezes Cardio Jugular venous distension: no JVD Rate: regular rate Rhythm: regular rhythm Heart sounds: S1 normal heart sound present, S2 normal heart sound present, no murmurs and no rubs Neuro General: patient oriented x3 Extrem General: Yes normal to inspection Psych Appearance: grossly normal Mental Status: mental status grossly normal Speech and movement: Normal speech and movement present Assessment & Plan Assessment & Plan (1) Chest pain on exertion: Code(s): R07.9 - Chest pain, unspecified Plan: On last visit reported chest discomfort with exertion, concerning for angina. Echocardiogram was done 03/21/2023 showing EF 57%, no regional wall motion abnormalities and no valve abnormalities. A nuclear stress test was done 04/10/2023 showing moderate RCA ischemia, EF 47% with stress and 56% with rest. He then had cardiac catheterization on 05/15/2023 showing mid RCA 99% stenosis, tortuous vessel, heavy calcification with collaterals from the apical LAD to the PDA. Patient had not been experiencing angina since starting metoprolol so the plan would be to continue medical management at this time. If he does have recurrent angina then PCI to the RCA will be considered, may need arthrectomy. Today he reports that he continues to feel well with no anginal symptoms. He has been only light physical activity. He reports having chronic issues with low back pain. He refuses cardiac rehab. Reviewed all the above with him. Continue medical management including dual anti-platelet therapy with aspirin and Plavix. Continue metoprolol. He is currently on simvastatin at 20 mg daily. Last LDL not optimally controlled. Will changes statin to atorvastatin 40 mg daily. Plan for fasting lipids in 2-3 months. Cardiac risk factor modification reviewed with him. Instructed on light activity as tolerated. Cardiology follow-up 2-3 months to re-evaluate symptoms. (2) Abnormal nuclear stress test: Code(s): R94.39 - Abnormal result of other cardiovascular function study (3) S/P cardiac catheterization: Comment: 05/15/2023, left main 30% stenosis, proximal LAD 50% stenosis, left circumflex 30-40% stenosis, proximal and RCA mid 99% stenosis, heavy calcification tortuous vessel, with collaterals, medical management unless ongoing angina Code(s): Z98.890 - Other specified postprocedural states Plan: Right radial catheterization site healing well (4) Coronary atherosclerosis: Code(s): I25.10 - Atherosclerotic heart disease of [place] coronary artery without angina pectoris Qualifiers: Coronary Disease-Associated Artery/Lesion type: [place] artery [place] vs. transplanted heart: [place] heart Associated angina: with stable angina Qualified Code(s): I25.118 - Atherosclerotic heart disease of [place] coronary artery with other forms of angina pectoris (5) Essential hypertension: Code(s): I10 - Essential (primary) hypertension Plan: Well controlled at present time. Continue current med management (6) Hyperlipidemia: Code(s): E78.5 - Hyperlipidemia, unspecified Qualifiers: Hyperlipidemia type: unspecified Qualified Code(s): E78.5 - Hyperlipidemia, unspecified Plan: LDL goal less than 70. Changing him to atorvastatin as above Medications: New atorvastatin 40 mg PO BEDTIME 90 tabs 3RF Discontinued simvastatin Discontinued Reason: Doctor's Order 20 mg PO DAILY 90 days 90 tabs 3RF F41.9 - Anxiety disorder, unspecified Coding Level of Care Code Est Pt Level 4 (89288) Diagnoses Chest pain on exertion R07.9 Abnormal nuclear stress test R94.39 S/P cardiac catheterization Z98.890 Atherosclerosis of [place] coronary artery of [place] heart with stable angina pectoris I25.118 Coronary Disease-Associated Artery/Lesion type: [place] artery [place] vs. transplanted heart: [place] heart Associated angina: with stable angina Essential hypertension I10 Hyperlipidemia, unspecified hyperlipidemia type E78.5 Hyperlipidemia type: unspecified Time Spent (min) 28
== END 2023-05-29 15:31 | disposition home or self-care (01) ==
PROVIDERS: PCP Family Medicine; Visit Provider Nurse Practitioner Family
DX: R07.9 Chest pain, unspecified (principal); R94.39 Abnormal result of other cardiovascular function study; Z98.890 Other specified postprocedural states; I25.118 Atherosclerotic heart disease of native coronary artery with other forms of angina pectoris; I10 Essential (primary) hypertension; E78.5 Hyperlipidemia, unspecified
CPT/HCPCS: 99214

== ENCOUNTER → 2023-05-29 14:25 | Outpatient (BNVA) | payer BC, SELFPAY | PROVIDERS: PCP Family Medicine; Visit Provider Nurse Practitioner Family ==

== ENCOUNTER 2023-06-26 13:35 | Outpatient (AMB) | payer BC, SELFPAY ==
--- NOTE | 2023-06-26 13:37 | A.OFFPC_ITS ---
Vital Signs 06/26/23 13:39 Height 5 ft 11 in Weight 180 lb BMI 25.1 BP 120/74 Blood Pressure Location Lt brachial Position Sitting Pulse 56 Pulse Source Pulse Oximeter Pulse Oximetry (%) 97 Oxygen Delivery Method Room Air Intake Visit Reasons: f/u chronic conditions Intake Note: Patient is here to follow up on chronic conditions. Allergies amoxapine Adverse Reaction (Mild, Verified 06/26/23 13:41) rash Medication List - Last Reconciled 06/26/23 by Varinder Murillo MD alprazolam 0.5 mg AM and 1.0 mg PM PO 2 times a day PRN; 45 tabs per 30 days. MassPat verified. Partial refill upon request. 30 days amlodipine 5 mg PO DAILY aspirin 81 mg PO DAILY atorvastatin 40 mg PO BEDTIME clopidogrel 75 mg PO DAILY duloxetine 60 mg PO DAILY 90 days flu vacc [id number](65yr up)-PF mL IM ibuprofen 1 to 2 tabs orally every 8 hours PRN; 90 days metoprolol succinate ER (Toprol XL) 50 mg PO DAILY nitroglycerin 0.4 mg sublingual Q5M PRN polyethylene glycol 3350 (Miralax) 238 grams PO ONCE Tobacco use date assessed: 06/26/23 Fall risk assessment: No Falls in past year Last assessed Fall Risk: 06/26/23 HPI f/u chronic conditions HPI Details 67 y/o male presents to f/u hypertension , pre-diabetes and chronic conditions. Had seen Cardiology Shelbi Bradford 05/29/23 for chest pain on exertion. Had changed statins to artovastatin 40mg daily. Per note: Echocardiogram was done 03/21/2023 showing EF 57%, no regional wall motion abnormalities and no valve abnormalities. A nuclear stress test was done 04/10/2023 showing moderate RCA ischemia, EF 47% with stress and 56% with rest. He then had cardiac catheterization on 05/15/2023 showing mid RCA 99% stenosis, tortuous vessel, heavy calcification with collaterals from the apical LAD to the PDA. Patient had not been experiencing angina since starting metoprolol so the plan would be to continue medical management at this time. Blood pressure today 120/74. He is on amlodipine 5mg and metoprolol 50mg daily. Last A1c 04/06/23 5.9%. A1c today 06/26/23 is 6.1%. HPI Comments History of Present Illness Details Documentation assistance for Varinder Murillo MD, was provided by Wyatt Montalvo,?[employer] Consultant on 06/26/2023 2:03 PM MOUNA. I, Dr. Murillo, have read, observed, and verified documentation.? [facility] Medical History No pertinent past medical history Surgical History History of appendectomy History of colonoscopy Family History Father Hx of type 1 diabetes mellitus Mother No problems noted. Family/Other Diabetes 1.5, managed as type 2 Family/Other Pancreatic cancer Family/Other Stented coronary artery Sister Cardiovascular disease Sister S/P triple vessel bypass Social History Household Members: Spouse Housing: House Alcohol intake: current Alcohol intake frequency: a few times a week Alcohol type: beer, wine, hard liquor and other Patient Tobacco Use Status: Never used Tobacco e-Cigarette/Vaping Use: Never Used Second Hand Smoke Exposure: No service: No Current occupational status: retired Current occupational exposures/hazards: No Cognitive needs: No Hearing needs: No Vision needs: No Questionnaire Thrive Questionnaire Date Thrive assessed: 09/05/22 MEGHANN-7 AMB Questionnaire MEGHANN-7 Date MEGHANN - 7 assessed: 06/01/21 Source: Developed by Drs. Lucio Adams, Melisa Kline, Paulo Ryan and colleagues, with an educational iris from [employer]. Review of Systems Const Denies chills, Denies fatigue, Denies fever(s), Denies headache(s) and Denies weakness ENT Denies dizziness and Denies headache(s) Card Denies chest pain, Denies lightheadedness, Denies dyspnea and Denies other (Palp itations) Resp Denies cough, Denies dyspnea, Denies wheezing and Denies other ( shortness of breath) Musc Denies numbness and Denies tingling Neuro Denies dizziness, Denies headache(s), Denies numbness, Denies tingling, Denies paresthesias and Denies weakness Psych Denies anxiety and Denies depression Endo Denies fatigue Aller/Immun Denies wheezing Physical exam (Primary Care) Vital Signs: Last Vital Signs Pulse 56 06/26/23 13:39 BP 120/74 06/26/23 13:39 Pulse Ox 97 06/26/23 13:39 Oxygen Delivery Method Room Air 06/26/23 13:39 BMI result Body Mass Index 25.1 Tobacco/Smoking Status: Tobacco use Status Tobacco use date assessed 06/26/23 06/26/23 13:42 Patient Tobacco Use Status Never used Tobacco 06/26/23 13:37 e-Cigarette/Vaping Use Never Used 06/26/23 13:37 Thrive Assessment: Date of Thrive Assessment Date Thrive assessed 09/05/22 06/26/23 13:37 Const General: no acute distress and well developed Nutritional Appearance: well nourished Orientation/consciousness: patient oriented x3 HENMT Head: Yes normocephalic and Yes atraumatic Eyes General: appearance normal, both eyes and all related structures Pupils: Equal, round and reactive pupils present EOM: EOMs intact bilaterally Resp Effort & Inspection: normal respiratory effort Auscultation: clear to auscultation bilaterally Cardio Rate: regular rate Rhythm: regular rhythm Heart sounds: S1 normal heart sound present, S2 normal heart sound present, no gallops, no murmurs and no rubs Neuro General: patient oriented x3 and gait normal Cranial nerves: Yes Equal, round and reactive pupils present Psych Affect: normal affect Results AMB Hemoglobin A1c AMB Hemoglobin A1c 6.1 % Last Edit by Michelle Shaw CMA on 06/26/23 14:14 Results Reviewed Results Reviewed: Laboratory Last Values Hgb A1c (Clinic) 6.1 % (4.0-6.0) H 06/26/23 14:08 Assessment and Plan Assessment & Plan (1) Essential hypertension: Code(s): I10 - Essential (primary) hypertension Plan: Blood?pressure?is?controlled.??Goal?is?less?than?130/80 Continue?current?medication Encouraged?exercise?and?salt/sodium?avoidance (2) Pre-diabetes: Code(s): R73.03 - Prediabetes Plan: A1c?has?crept?up?to?6.1% Encouraged?diet?low?in?sugars?and?starches Will?follow?closely (3) S/P cardiac catheterization: Comment: 05/15/2023, left main 30% stenosis, proximal LAD 50% stenosis, left circumflex 30-40% stenosis, proximal and RCA mid 99% stenosis, heavy calcification tortuous vessel, with collaterals, medical management unless ongoing angina Code(s): Z98.890 - Other specified postprocedural states Plan: Significant?stenosis?of?99%?in?RCA?but?with?collaterals. Recent?increase?in?his?atorvastatin?and?this?can?be?increased?further?if?needed Encouraged?he?continue?clopidogrel,?atorvastatin,?aspirin,?metoprolol?and?can?us e?nitroglycerin Follow-up?with?Cardiology?as?recommended Strongly?encouraged?that?he?continue?exercise?program?as?recommended. (4) Coronary atherosclerosis: Code(s): I25.10 - Atherosclerotic heart disease of [place] coronary artery without angina pectoris Qualifiers: Associated angina: with stable angina Coronary Disease-Associated Artery/Lesion type: [place] artery [place] vs. transplanted heart: [place] heart Qualified Code(s): I25.118 - Atherosclerotic heart disease of [place] coronary artery with other forms of angina pectoris Plan: As?above (5) Anxiety with depression: Code(s): F41.8 - Other specified anxiety disorders Plan: Mildly?worsened?depression,?likely?natalee e?of?this?is?due?to?understanding?his?coronary?artery?disease Encouraged?exercise Will?follow (6) Hyperlipidemia: Code(s): E78.5 - Hyperlipidemia, unspecified Qualifiers: Hyperlipidemia type: unspecified Qualified Code(s): E78.5 - H yperlipidemia, unspecified Plan: As?above,?recently?had?his?atorvastatin?increased.??Goal?for?LDL?is?less?than?70 (7) Immunization counseling: Code(s): Z71.85 - Encounter for immunization safety counseling Plan: Recommended?next?COVID?shot?and?RSV Orders: Orders AMB Hemoglobin A1c Today Z13.9 - Encounter for screening, unspecified Coding Level of Care Code Est Pt Level 4 (20969) Diagnoses Essential hypertension I10 Pre-diabetes R73.03 S/P cardiac catheterization Z98.890 Atherosclerosis of [place] coronary artery of [place] heart with stable angina pectoris I25.118 Associated angina: with stable angina Coronary Disease-Associated Artery/Lesion type: [place] artery [place] vs. transplanted heart: [place] heart Anxiety with depression F41.8 Hyperlipidemia, unspecified hyperlipidemia type E78.5 Hyperlipidemia type: unspecified Immunization counseling Z71.85
[2023-06-26 13:39] VITALS: BP 120/74; PULSE 56; O2SAT 97; BMI 25.1
== END 2023-06-26 14:32 | disposition home or self-care (01) ==
PROVIDERS: PCP Family Medicine; Visit Provider Family Medicine
DX: I10 Essential (primary) hypertension (principal); R73.03 Prediabetes; Z98.890 Other specified postprocedural states; I25.118 Atherosclerotic heart disease of native coronary artery with other forms of angina pectoris; F41.8 Other specified anxiety disorders; E78.5 Hyperlipidemia, unspecified; Z71.85 Encounter for immunization safety counseling
CPT/HCPCS: 83036; 99214

== ENCOUNTER 2023-08-30 14:03 | Outpatient (REF) | payer BC, SELFPAY ==
[2023-08-30 16:05] LABS: Alanine Aminotransferase 48 U/L (0-40); Albumin Level 4.3 g/dL (3.5-5.0); Alkaline Phosphatase 71 U/L (39-117); Aspartate Amino Transferase 35 U/L (5-37); Bilirubin Direct 0.3 mg/dL (0.0-0.5); Bilirubin Total 0.7 mg/dL (0.0-1.0); Cholesterol 131 mg/dL (<200); HDL Cholesterol 43 mg/dL (>40); LDL Cholesterol Calculated 63 mg/dL (<100); Total Protein 7.8 g/dL (6.5-8.0); Triglycerides 128 mg/dL (<150)
[2023-09-01 08:03] LABS: LDL Cholesterol Direct 68 mg/dL (<100)
== END 2023-08-30 14:04 | disposition home or self-care (01) ==
LOC: HO.LAB 14:03
PROVIDERS: PCP Family Medicine; Visit Provider Internal Medicine
DX: I25.118 Atherosclerotic heart disease of native coronary artery with other forms of angina pectoris (principal); I10 Essential (primary) hypertension; E78.2 Mixed hyperlipidemia; Z79.899 Other long term (current) drug therapy
CPT/HCPCS: 36415; 80061; 80076; 83721; 93005

== ENCOUNTER 2023-10-23 10:49 | Day surgery (SDC) | payer BC, SELFPAY ==
--- NOTE | 2023-10-22 09:24 | HO.ANESPROP2 ---
Documented by User: Aydee Sabillon NP 10/22/23 09:27 [facility] Active Problems Active Problems: All Active Problems (Updated 08/30/23 @ 14:13 by Brennan Lancaster MD) Stable angina (Acute) Atherosclerotic cardiovascular disease (Acute) Coronary atherosclerosis (Acute) S/P cardiac catheterization (Acute) Abnormal nuclear stress test (Acute) Normocytic anemia (Acute) Chest pain on exertion (Acute) Anxiety with depression (Acute) Mild anemia (Acute) Arthritis (Acute) Bilateral knee pain (Acute) Anxiety with depression (Acute) Immunization counseling (Acute) Chest pain (Acute) Screening for colon cancer (Acute) Screening for prostate cancer (Acute) Left knee pain (Acute) Adult general medical exam (Acute) Essential hypertension (Acute) Elevated blood pressure reading (Acute) Pre-diabetes (Acute) Vitamin D deficiency (Acute) Hyperlipidemia (Acute) GERD (gastroesophageal reflux disease) (Acute) Irritability and anger (Acute) Anxiety (Acute) Right-sided low back pain without sciatica (Acute) Past Medical History Medical History Stable angina Normocytic anemia Anxiety with depression Essential hypertension Hyperlipidemia GERD (gastroesophageal reflux disease) Atherosclerotic cardiovascular disease Family History Family History Father Hx of type 1 diabetes mellitus Mother No problems noted. Family/Other Diabetes 1.5, managed as type 2 Family/Other Pancreatic cancer Family/Other Stented coronary artery Sister Cardiovascular disease Sister S/P triple vessel bypass Surgical History Surgical History S/P cardiac catheterization History of appendectomy History of colonoscopy Social History Social History Household Members: Spouse Housing: House Alcohol intake: current Alcohol intake frequency: a few times a week Alcohol type: beer, wine, hard liquor and other Patient Tobacco Use Status: Never used Tobacco e-Cigarette/Vaping Use: Never Used Second Hand Smoke Exposure: No Are you DNR?: No Advance Directives: No Advance Directives Information Provided: Yes Nutrition Risks: No Nutritional Risk service: No Current occupational status: retired Current occupational exposures/hazards: No Cognitive needs: No Hearing needs: No Vision needs: No Meds Allergies Allergy/AdvReac Type Severity Reaction Status Date / Time amoxapine AdvReac Mild rash Verified 10/23/23 11:21 Home Medications Medication Instructions Recorded Confirmed Last Taken Type flu vacc [id number](65yr up)-PF 240 ml IM 07/13/20 08/30/23 Unknown History mcg/0.7 mL intramuscular syringe amlodipine 2.5 mg tablet 5 mg PO DAILY 05/29/23 08/30/23 Unknown History Exam Pertinent Lab Results Pertinent Lab Results: Laboratory Tests 05/04/23 07:05 WBC 7.6 Hgb 13.4 L Hct 39.2 L Plt Count 159 L Sodium 142 Potassium 4.7 Chloride 104 Carbon Dioxide 30 H BUN 13 Creatinine 1.09 Narrative Narrative: Per 08/2023 cardiology office visit note: EKG 08/2023 Details: EKG with sinus bradycardia at 46/Min; no significant ST-T changes and otherwise unremarkable. Normal PA and corrected QT. Echocardiogram with LVEF of 57%. No wall motion abnormalities and otherwise unremarkable. Myocardial perfusion imaging study showed moderate density right coronary artery territory ischemia. Cardiac catheterization data reviewed. Mid RCA 99% stenosis with heavy calcification. 50% proximal LAD stenosis; 30-40% proximal circumflex stenosis and 30% distal left main stenosis. Collateral from apical LAD to PDA. Assessment and Plan Assessment Anesthesia Assessment: Chart Reviewed Documented by User: Sallie Ramsey MD 10/23/23 12:48 [facility] Past Medical History Medical History Stable angina Normocytic anemia Anxiety with depression Essential hypertension Hyperlipidemia GERD (gastroesophageal reflux disease) Atherosclerotic cardiovascular disease Family History Family History Father Hx of type 1 diabetes mellitus Mother No problems noted. Family/Other Diabetes 1.5, managed as type 2 Family/Other Pancreatic cancer Family/Other Stented coronary artery Sister Cardiovascular disease Sister S/P triple vessel bypass Surgical History Surgical History S/P cardiac catheterization History of appendectomy History of colonoscopy History of Problems with Anesthesia: No Social History Social History Household Members: Spouse Housing: House Alcohol intake: current Alcohol intake frequency: a few times a week Alcohol type: beer, wine, hard liquor and other Patient Tobacco Use Status: Never used Tobacco e-Cigarette/Vaping Use: Never Used Second Hand Smoke Exposure: No Are you DNR?: No Advance Directives: No Advance Directives Information Provided: Yes Nutrition Risks: No Nutritional Risk service: No Current occupational status: retired Current occupational exposures/hazards: No Cognitive needs: No Hearing needs: No Vision needs: No Meds Allergies Allergy/AdvReac Type Severity Reaction Status Date / Time amoxapine AdvReac Mild rash Verified 10/23/23 11:21 Home Medications Medication Instructions Recorded Confirmed Last Taken Type flu vacc [id number](65yr up)-PF 240 ml IM 07/13/20 08/30/23 Unknown History mcg/0.7 mL intramuscular syringe amlodipine 2.5 mg tablet 5 mg PO DAILY 05/29/23 08/30/23 Unknown History Exam Airway Mallampati Class: III TM Dist: >3cm Neck ROM: Full Loose/Missing/Broken Teeth: No Heart: RRR Lungs: CTA Assessment and Plan Assessment Anesthesia Assessment: Anesthesia Plan Discussed Final Anesthetic Review History of Problems with Anesthesia: No NPO: Yes ASA Class: III Final Preanesthetic Review: Meds/Allgs Chart Reviewed, Consent Obtained/Reviewed and Anes Risks/Benef Reviewed Patient Risk: Intermediate Procedure Risk: Low Anesthetic Plan Anesthetic Plan: MAC: Disposition: Standard PACU
[2023-10-23 11:00] VITALS: BMI 25.1
[2023-10-23] MEDS: Lactated Ringers 1,000 ML 100 ML IVCONT (11:07)
[2023-10-23 11:21] VITALS: BP 157/80; PULSE 47; RESP 18; TEMP 36.7; O2SAT 99
--- NOTE | 2023-10-23 12:38 | P.HPSUR_ITS ---
Pre-Procedural Eval Section A - 24 Hr Update-Section A only Date of Service: 10/23/23 Section B - Complete if H&P > 30 days Chief Complaint: Encounter for screening for malignant neoplasm of Relevant Family History (Specify if Yes): No Relevant Social History: None Present Medications: see Short Stay Collaborative assessment Medical History: Significant History (Stable angina Normocytic anemia Anxiety with depression Essential hypertension Hyperlipidemia GERD (gastroesophageal reflux disease) Atherosclerotic cardiovascular disease) History of Previous Operations: Relevant previous surgery/procedure and date(s) (S/P cardiac catheterization History of appendectomy History of colonoscopy) Allergies: Allergies Allergy/AdvReac Type Severity Reaction Status Date / Time amoxapine AdvReac Mild rash Verified 10/23/23 11:21 Review of Systems Sugical H&P ROS: Negative: Constitution, Cardiovascular, Respiratory, Neurological, Psychiatric, Hem-Onc, Allergic/Immunologic, Gastrointestinal, Genitourinary, Musculoskeletal, Integumentary, Endocrine and Eyes/Ears/N ose/Throat Exam Surgical H&P Exam: Normal: HEENT, Normal: Heart, Normal: Lungs, Normal: Extremities, Normal: Abdomen, Normal: Skin and Normal: Neurological Plan Diagnosis/Plan: Unchanged I have reviewed the history and physical and performed a pertinent physical examination on my patient. No changes have occurred unless specified. Time Spent With Patient Time: Total time managing care of this patient today ____ minutes.
--- NOTE | 2023-10-23 12:39 | P.OP_ITS ---
Operative Note Operative Note Date of Service: 10/23/23 Narrative: Operative Information Procedure Description: Colonoscopy Indication: screening Anesthesia: MAC COLONOSCOPY Instrument: Olympus variable stiffness pediatric scope 190L Colonoscopy Monitoring: Vital signs and clinical assessment, continuous EKG monitoring, Pulse oximetry, Carbon Dioxide monitoring and blood pressure monitoring were done throughout the procedure. Colon withdrawal time was 12 minutes. Procedure: The patient was placed in the left lateral decubitis position and pre-procedure medications were administered. After a digital rectal examination of the ano-rectum, the video colonoscope was inserted into the rectum and advanced through the colon to the cecum/TI. The colonoscope was slowly withdrawn in a retrograde panoramic fashion and the colon mucosa was carefully examined including a retroflexed view of the rectum. Findings and interventions are described below. Procedure Difficulty: easy Findings: Terminal Ileum-normal Cecum:normal Ascending Colon: 6-7 mm sessile polyp removed with cold forceps Transverse Colon -normal Descending Colon: 10 mm sessile polyp removed with cold snare but not retrieved Sigmoid Colon: moderate severe diverticulosis Rectum: Retroflexion with medium sized internal hemorrhoids seen, grade I, 11-12 mm sessile polyp removed from mid rectum Anorectum - normal Colon preparation: [place] Bowel Preparation Scale Right colon; 2 Transverse colon: 2 Left colon; 2 (0 = Unprepared colon segment with mucosa not seen due to solid stool that cannot be cleared. 1 = Portion of mucosa of the colon segment seen, but other areas of the colon segment not well seen due to staining, residual stool and/or opaque liquid. 2 = Minor amount of residual staining, small fragments of stool and/or opaque liquid, but mucosa of colon segment seen well. 3 = Entire mucosa of colon segment seen well with no residual staining, small fragments of stool or opaque liquid) Impression and Post Procedure Diagnosis: diverticulosis colon polyps internal hemorrhoids Plan: High fiber diet leaflet Avoid straining at stool, epsom salts and sitz bath, anusol supps or cream Repeat Colonoscopy in 5 years due to polyps or earlier if clinically indicated Above findings were reviewed with the patient and relevant handouts were provided if indicated.
[2023-10-23 13:35] VITALS: BP 104/45; PULSE 50; RESP 20; TEMP 36.6; O2SAT 99
[2023-10-23 13:50] VITALS: BP 110/62; PULSE 47; RESP 18; O2SAT 99
[2023-10-23 14:05] VITALS: BP 146/65; PULSE 48; RESP 16; TEMP 36.6; O2SAT 100
== END 2023-10-23 14:52 | disposition home or self-care (01) ==
PROVIDERS: PCP Family Medicine; Visit Provider Internal Medicine Gastroenterology
PROC: 0DJD8ZZ Inspection of Lower Intestinal Tract, Via Natural or Artificial Opening Endoscopic (ICD-10-PCS; CPT 45378; principal; 2023-10-23 14:00)
DX: Z12.11 Encounter for screening for malignant neoplasm of colon (principal); D12.2 Benign neoplasm of ascending colon; D12.8 Benign neoplasm of rectum; K57.30 Diverticulosis of large intestine without perforation or abscess without bleeding; K64.0 First degree hemorrhoids; R73.03 Prediabetes; I10 Essential (primary) hypertension; E78.5 Hyperlipidemia, unspecified; I25.10 Atherosclerotic heart disease of native coronary artery without angina pectoris; K21.9 Gastro-esophageal reflux disease without esophagitis
CPT/HCPCS: 45385; 45380; 88305; J2704

== ENCOUNTER → 2023-10-23 10:49 | Outpatient (BNV) | payer BC, SELFPAY | PROVIDERS: PCP Family Medicine; Visit Provider Internal Medicine Gastroenterology | DX: Z12.11 Encounter for screening for malignant neoplasm of colon (principal); K63.5 Polyp of colon; K57.90 Diverticulosis of intestine, part unspecified, without perforation or abscess without bleeding; K64.8 Other hemorrhoids | CPT/HCPCS: 45380; 45385 ==

== ENCOUNTER 2023-11-13 11:48 | Outpatient (AMB) | payer BC, SELFPAY ==
--- NOTE | 2023-11-13 11:59 | MHC.PC.OV ---
Vital Signs 11/13/23 12:01 Height 5 ft 11 in Weight 180 lb 6 oz BMI 25.2 BP 112/63 Blood Pressure Location Lt brachial Position Sitting Pulse 64 Pulse Source Pulse Oximeter Pulse Oximetry (%) 100 Oxygen Delivery Method Room Air Intake Visit Reasons: f/u chronic conditions Intake Note: Patient is here for follow up on chronic conditions. Allergies amoxapine Adverse Reaction (Mild, Verified 11/13/23 12:03) rash Tobacco use date assessed: 11/13/23 Fall risk assessment: No Falls in past year Last assessed Fall Risk: 11/13/23 Dental Screening Dental Screen Date: 11/13/23 Did you have a dental visit in the last 12 months?: No Did you have a dental problem in the last 6 months where you did not have access to dental care?: No Was dental information given to patient?: Patient declined HPI f/u chronic conditions HPI Details 68 y/o male presents to f/u pre-diabetes, hypertension and coronary artery disease. Last A1c 06/26/23 6.1%. A1c today 11/13/23 worsened to 6.5%. Blood pressure today 112/63. He is on amlodipine 5mg and metoprolol 50mg daily. Lipid panel drawn 08/30/23. Triglycerides 128. TC 131. LDL direct 68. HDL 43. He is on artovastatin 40mg. [facility] Medical History (Updated 11/13/23 @ 12:43 by Wyatt Montalvo) Essential hypertension Hyperlipidemia Stable angina Normocytic anemia Anxiety with depression GERD (gastroesophageal reflux disease) Atherosclerotic cardiovascular disease Surgical History S/P cardiac catheterization History of appendectomy History of colonoscopy Family History Father Hx of type 1 diabetes mellitus Mother No problems noted. Family/Other Diabetes 1.5, managed as type 2 Family/Other Pancreatic cancer Family/Other Stented coronary artery Sister Cardiovascular disease Sister S/P triple vessel bypass Social History Household Members: Spouse Housing: House Alcohol intake: current Alcohol intake frequency: a few times a week Alcohol type: beer, wine, hard liquor and other Patient Tobacco Use Status: Never used Tobacco e-Cigarette/Vaping Use: Never Used Second Hand Smoke Exposure: No service: No Current occupational status: retired Current occupational exposures/hazards: No Cognitive needs: No Hearing needs: No Vision needs: No Questionnaire PHQ-9 Over the last 2 weeks, how often have you been bothered by any of the following problems? 1. Little interest or pleasure in doing things: several days 2. Feeling down, depressed, or hopeless: several days 3. Trouble falling or staying asleep, or sleeping too much: several days 4. Feeling tired or having little energy: nearly every day 5. Poor appetite or overeating: several days 6. Feeling bad about yourself - or that you are a failure or have let yourself or your family down: several days 7. Trouble concentrating on things, such as reading the newspaper or watching television: several days 8. Moving or speaking so slowly that other people could have noticed. Or the opposite - being so fidgety or restless that you have been moving around a lot more than usual: not at all 9. Thoughts that you would be better off or of hurting yourself in some way: not at all Total score: 9 Depression Screening Interpretation: Positive Depression Screening Follow-up: Existing condition, In treatment and Declines treatment (Declines?medication?changes) Depression Screening Done: Yes [id number] - PHQ-9 Billing: Yes Source: Developed by Drs. Lucio Adams, Melisa Kline, Paulo Ryan and colleagues, with an educational iris from [employer]. Thrive Questionnaire Date Thrive assessed: 11/13/23 I am a: Patient What is your living situation today?: I have a steady place to live Within the past 12 months, did the food you bought not last and you didn't have the money to get more?: Never true Within the past 12 months, did you worry whether your food would run out before you got money to buy more?: Never true Do you have trouble paying for medicines?: No Do you have trouble getting transportation to medical appointments?: No Do you have trouble paying your heating and electricity bill?: No Do you have trouble taking care of your child, family member or friend?: No Do you have trouble with day-to-day activities such as bathing, preparing meals, shopping, managing finances, etc.?: No Are you currently unemployed and looking for a job?: No Are you interested in more education?: No THRIVE Score: 0 AUDIT C Alcohol Use Questionnaire (AUDIT-C) 1. How often do you have a drink containing alcohol?: 2-3 times a week 2. How many drinks containing alcohol do you have on a typical day when you are drinking?: 1 or 2 3. How often do you have six or more drinks on one occasion?: Never Total Score: 3 MEGHANN-7 AMB Questionnaire MEGHANN-7 Date MEGHANN - 7 assessed: 11/13/23 Feeling nervous, anxious, or on edge: 3 = Nearly every day Not being able to stop or control worryin = More than half the days Worrying too much about different things: 3 = Nearly every day Trouble relaxin = Nearly every day Being so restless that it is hard to sit still: 1 = Several days Becoming easily annoyed or irritable: 1 = Several days Feeling afraid as if something awful might happen: 1 = Several days Total MEGHANN-7 score (0-4 normal; 5-9 mild; 10-14 moderate; 15-21 severe): 14 Source: Developed by Drs. Lucio Adams, Melisa Kline, Paulo Ryan and colleagues, with an educational iris from [employer]. MEGHANN-7 Assessment Billing MEGHANN-7 Assessment Tool: MEGHANN-7 Assessment 21903 Review of Systems Const Denies chills, Denies fatigue, Denies fever(s), Denies headache(s) and Denies weakness ENT Denies dizziness and Denies headache(s) Card Denies dyspnea Resp Denies cough, Denies dyspnea, Denies wheezing and Denies other (shortness of breath) Musc Denies numbness and Denies tingling Neuro Denies dizziness, Denies headache(s), Denies numbness, Denies tingling and Denies weakness Psych Denies anxiety and Denies depression Endo Denies fatigue Aller/Immun Denies wheezing Physical exam (Primary Care) Vital Signs: Last Vital Signs Pulse 64 11/13/23 12:01 BP 112/63 11/13/23 12:01 Pulse Ox 100 11/13/23 12:01 Oxygen Delivery Method Room Air 11/13/23 12:01 BMI result Body Mass Index 25.2 Tobacco/Smoking Status: Tobacco use Status Tobacco use date assessed 11/13/23 11/13/23 12:05 Patient Tobacco Use Status Never used Tobacco 11/13/23 11:59 e-Cigarette/Vaping Use Never Used 11/13/23 11:59 PHQ-9: PHQ-9 Score PHQ-9: Total score 9 11/13/23 12:34 Depression Screening Interpretation: Positive Depression Screening Follow-up: Existing condition, In treatment and Declines treatment (Declines?medication?changes) Thrive Assessment: Date of Thrive Assessment Date Thrive assessed 11/13/23 11/13/23 12:25 Const General: well developed; No acute distress Nutritional Appearance: well nourished Orientation/consciousness: patient oriented x3 HENMT Head: Yes normocephalic and Yes atraumatic Eyes General: appearance normal, both eyes and all related structures Pupils: Equal, round and reactive pupils present EOM: EOMs intact bilaterally Resp Effort & Inspection: normal respiratory effort Auscultation: clear to auscultation bilaterally Cardio Rate: regular rate Rhythm: regular rhythm Heart sounds: S1 normal heart sound present, S2 normal heart sound present, no gallops, no murmurs and no rubs Neuro General: patient oriented x3 and gait normal Cranial nerves: Yes Equal, round and reactive pupils present Psych Affect: normal affect Results AMB Hemoglobin A1c AMB Hemoglobin A1c 6.5 % Last Edit by Michelle Shaw CMA on 11/13/23 12:41 Assessment and Plan Assessment & Plan (1) Essential hypertension: Code(s): I10 - Essential (primary) hypertension Plan: Blood?pressure?is?well?controlled.??Goal?is?less?than?130/80 Continue?current?medication?regimen (2) Atherosclerotic cardiovascular disease: Code(s): I25.10 - Atherosclerotic heart disease of [place] coronary artery without angina pectoris Plan: Stable.??Follow-up?with??Tonny?as?recommended (3) Diabetes: Code(s): E11.9 - Type 2 diabetes mellitus without complications Plan: A1c?has?risen?to?6.5%;?early?diabetes. Goal?is?less?than?7.0% Continue?working?at?a?diet?lower?in?sugars?and?starches Patient?also?has?coronary?artery?disease?concurrently.??Recommend?starting?metformin 250?mg?daily Follow-up?in?3?months (4) Hyperlipidemia: Code(s): E78.5 - Hyperlipidemia, unspecified Qualifiers: Hyperlipidemia type: unspecified Qualified Code(s): E78.5 - Hyperlipidemia, unspecified Plan: Patient?is?on?atorvastatin?40?mg?daily History?of?coronary?artery?disease?and?LDL?goal?is?less?than?70.??Patient?is?at?goal Continue?current?medication?regimen (5) Anxiety with depression: Code(s): F41.8 - Other specified anxiety disorders Plan: PHQ-9?and?meghann?7?show?mild?depression?and?moderate?anxiety. He?is?taking?duloxetine?and?alprazolam Declines?medication?changes?today. Orders: Orders AMB Hemoglobin A1c Today Z13.9 - Encounter for screening, unspecified TDaP Immunization Today Z23 - Encounter for immunization, Z71.85 - Encounter for immunization safety counseling Medications: New Boostrix Tdap (diphth,pertus(acell),tetanus) 0.5 mL IM ONCE 0.5 mL 0RF NS Z23 - Encounter for immunization, Z71.85 - Encounter for immunization safety counseling metformin 250 mg (1/2 x 500 mg) PO DAILY 45 tabs 1RF 90 days Coding Level of Care Code Est Pt Level 4 (27581) Diagnoses Essential hypertension I10 Atherosclerotic cardiovascular disease I25.10 Diabetes E11.9 Hyperlipidemia, unspecified hyperlipidemia type E78.5 Hyperlipidemia type: unspecified Anxiety with depression F41.8 Additional Codes MEGHANN-7 Assessment Billing - MEGHANN-7 Assessment Tool: MEGHANN-7 Assessment [id number] ([id number])
[2023-11-13 12:01] VITALS: BP 112/63; PULSE 64; O2SAT 100; BMI 25.2
== END 2023-11-13 12:57 | disposition home or self-care (01) ==
PROVIDERS: PCP Family Medicine; Visit Provider Family Medicine
DX: I10 Essential (primary) hypertension (principal); E11.69 Type 2 diabetes mellitus with other specified complication; I25.10 Atherosclerotic heart disease of native coronary artery without angina pectoris; Z23 Encounter for immunization; E78.5 Hyperlipidemia, unspecified; F41.8 Other specified anxiety disorders; Z71.85 Encounter for immunization safety counseling; Z13.9 Encounter for screening, unspecified
CPT/HCPCS: 83036; 90471; 90715; 99214

== ENCOUNTER 2023-11-26 07:00 | Outpatient (REF) | payer BC, SELFPAY ==
[2023-11-26 12:46] LABS: Alanine Aminotransferase 76 U/L (0-40); Albumin Level 4.3 g/dL (3.5-5.0); Alkaline Phosphatase 75 U/L (39-117); Aspartate Amino Transferase 59 U/L (5-37); Bilirubin Direct 0.3 mg/dL (0.0-0.5); Bilirubin Total 0.8 mg/dL (0.0-1.0); Total Protein 7.6 g/dL (6.5-8.0)
== END 2023-11-26 07:01 | disposition home or self-care (01) ==
LOC: HO.WFDLDS 07:00
PROVIDERS: Visit Provider Internal Medicine
DX: R79.89 Other specified abnormal findings of blood chemistry (principal)
CPT/HCPCS: 36415; 80076

== ENCOUNTER 2024-02-18 13:58 | Outpatient (AMB) | payer BC, SELFPAY ==
[2024-02-18 14:02] VITALS: BP 118/70; PULSE 63; O2SAT 99; BMI 24.9
--- NOTE | 2024-02-18 14:02 | A.OFFPC_ITS ---
Vital Signs 02/18/24 14:02 Height 5 ft 11 in Weight 178 lb 8 oz BMI 24.9 BP 118/70 Blood Pressure Location Lt brachial Position Sitting Pulse 63 Pulse Source Pulse Oximeter Pulse Oximetry (%) 99 Oxygen Delivery Method Room Air Intake Visit Reasons: 3m f/u: diabetes, hypertension, chronic conditions Intake Note: Patient is here for follow up on diabetes, hypertension, and chronic conditions. He needs refill of amlodipine 2.5, and Ibuprofen, too. Allergies amoxapine Adverse Reaction (Mild, Verified 02/18/24 14:04) rash Medication List - Last Reconciled 02/18/24 by Varinder Murillo MD alprazolam 0.5 mg AM and 1.0 mg PM PO 2 times a day PRN; 45 tabs per 30 days. MassPat verified. Partial refill upon request. 30 days amlodipine 5 mg PO DAILY aspirin 81 mg PO DAILY atorvastatin 40 mg PO BEDTIME clopidogrel 75 mg PO DAILY duloxetine 60 mg PO DAILY 90 days flu vacc [id number](65yr up)-PF mL IM ibuprofen 1 to 2 tabs orally every 8 hours PRN; 90 days metformin 250 mg (1/2 x 500 mg) PO DAILY 90 days metoprolol succinate ER (Toprol XL) 50 mg PO DAILY nitroglycerin 0.4 mg sublingual Q5M PRN Tobacco use date assessed: 11/13/23 Fall risk assessment: No Falls in past year Last assessed Fall Risk: 02/18/24 Dental Screening Dental Screen Date: 11/13/23 HPI 3m f/u: diabetes, hypertension, chronic conditions HPI Details 68 y/o male presents to f/u diabetes, hy pertension, chronic conditions. Last A1c 11/13/23 6.5%. - diabetes range. Had started him on metformin 250mg daily. A1c today 02/18/24 is 6.2%. Blood pressure today 118/70. He is on metoprolol 50mg, amlodipine 5mg daily. HPI Comments History of Present Illness Details Documentation assistance for Varinder Murillo MD, was provided by Wyatt Montalvo,? Job Molder on 02/18/2024 at 2:29 PM EST. I, Dr. Murillo, have read, observed, and verified documentation. [facility] Medical History (Updated 11/13/23 @ 12:43 by Wyatt Montalvo) Essential hypertension Hyperlipidemia Stable angina Normocytic anemia Anxiety with depression GERD (gastroesophageal reflux disease) Atherosclerotic cardiovascular disease Surgical History (Reviewed 11/13/23 @ 12:05 by Michelle Shaw [facility]) S/P cardiac catheterization History of appendectomy History of colonoscopy Family History Father Hx of type 1 diabetes mellitus Mother No problems noted. Family/Other Diabetes 1.5, managed as type 2 Family/Other Pancreatic cancer Family/Other Stented coronary artery Sister Cardiovascular disease Sister S/P triple vessel bypass Social History (Reviewed 11/13/23 @ 12:05 by Michelle Shaw [facility]) Household Members: Spouse Housing: House Alcohol intake: current Alcohol intake frequency: a few times a week Alcohol type: beer, wine, hard liquor and other Patient Tobacco Use Status: Never used Tobacco e-Cigarette/Vaping Use: Never Used Second Hand Smoke Exposure: No service: No Current occupational status: retired Current occupational exposures/hazards: No Cognitive needs: No Hearing needs: No Vision needs: No Questionnaire Thrive Questionnaire Date Thrive assessed: 11/13/23 MEGHANN-7 AMB Questionnaire MEGHANN-7 Date MEGHANN - 7 assessed: 11/13/23 Source: Developed by Drs. Lucio dAams, Melisa Kline, Paulo Ryan and colleagues, with an educational iris from [employer]. Review of Systems Const Denies chills, Denies fatigue, Denies fever(s), Denies headache(s) and Denies weakness ENT Denies dizziness and Denies headache(s) Card Denies dyspnea Resp Denies cough, Denies dyspnea, Denies wheezing and Denies other (shortness of breath) Musc Denies numbness and Denies tingling Neuro Denies dizziness, Denies headache(s), Denies numbness, Denies tingling and Denies weakness Psych Denies anxiety and Denies depression Endo Denies fatigue Aller/Immun Denies wheezing Physical exam (Primary Care) Vital Signs: Last Vital Signs Pulse 63 02/18/24 14:02 BP 118/70 02/18/24 14:02 Pulse Ox 99 02/18/24 14:02 Oxygen Delivery Method Room Air 02/18/24 14:02 BMI result Body Mass Index 24.9 Tobacco/Smoking Status: Tobacco use Status Tobacco use date assessed 11/13/23 02/18/24 14:09 Patient Tobacco Use Status Never used Tobacco 02/18/24 14:09 e-Cigarette/Vaping Use Never Used 02/18/24 14:09 Thrive Assessment: Date of Thrive Assessment Date Thrive assessed 11/13/23 02/18/24 14:09 Const General: well developed; No acute distress Nutritional Appearance: well nourished Orientation/consciousness: patient oriented x3 HENMT Head: Yes normocephalic and Yes atraumatic Eyes General: appearance normal, both eyes and all related structures Pupils: Equal, round and reactive pupils present EOM: EOMs intact bilaterally Resp Effort & Inspection: normal respiratory effort Auscultation: clear to auscultation bilaterally Cardio Rate: regular rate Rhythm: regular rhythm Heart sounds: S1 normal heart sound present, S2 normal heart sound present, no gallops, no murmurs and no rubs Neuro General: patient oriented x3 and gait normal Cranial nerves: Yes Equal, round and reactive pupils present Psych Affect: normal affect Results AMB Hemoglobin A1c AMB Hemoglobin A1c 6.2 % Last Edit by Michelle Shaw CMA on 02/18/24 14:29 Assessment and Plan Assessment & Plan (1) Diabetes: Code(s): E11.9 - Type 2 diabetes mellitus without complications Plan: Early?diabetes?with?comorbidity?of?coronary?artery?disease.??Started ?him?on?a?low?dose?of?metformin. A1c?decreased?from?6.5%?to?6.2%.??He?has?tolerating?the?medication Continue?current?medication Also?encouraged?him?to?call?his?eye?doctor?for?an?appointment?as?he?sa ys?his?last?visit?was?01/06/2023 (2) Essential hypertension: Code(s): I10 - Essential (primary) hypertension Plan: Blood?pressure?is?controlled.??Goal?is?less?than?130/80 Continue?current?medication (3) Atherosclerotic cardiovascular disease: Code(s): I25.10 - Atherosclerotic heart disease of [place] coronary artery without angina pectoris Plan: Stable Orders: Orders AMB Hemoglobin A1c Today Z13.9 - Encounter for screening, unspecified Medications: Changed From amlodipine 5 mg PO DAILY To amlodipine 5 mg PO DAILY 90 days 90 tabs 3RF Refilled ibuprofen 1 to 2 tabs orally every 8 hours PRN; 90 days 540 tabs 1RF pain Coding Level of Care Code Est Pt Level 4 (42449) Diagnoses Diabetes E11.9 Essential hypertension I10 Atherosclerotic cardiovascular disease I25.10
== END 2024-02-18 14:45 | disposition home or self-care (01) ==
PROVIDERS: PCP Family Medicine; Visit Provider Family Medicine
DX: E11.9 Type 2 diabetes mellitus without complications (principal); I10 Essential (primary) hypertension; I25.10 Atherosclerotic heart disease of native coronary artery without angina pectoris
CPT/HCPCS: 83036; 99214

== ENCOUNTER 2024-03-03 14:09 | Outpatient (AMB) | payer BC, SELFPAY ==
[2024-03-03 14:27] VITALS: BP 110/74; PULSE 48; BMI 24.8
--- NOTE | 2024-03-03 14:27 | MHC.OFFVIS ---
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 MassPat verified. Partial refill upon request. 30 days amlodipine 2.5 mg PO DAILY aspirin 81 mg PO DAILY atorvastatin 40 mg PO BEDTIME clopidogrel 75 mg PO DAILY duloxetine 60 mg PO DAILY 90 days flu vacc [id number](65yr up)-PF mL IM ibuprofen 1 to 2 tabs orally every 8 hours PRN; 90 days metformin 250 mg (1/2 x 500 mg) PO DAILY 90 days metoprolol succinate ER (Toprol XL) 50 mg PO DAILY nitroglycerin 0.4 mg sublingual Q5M PRN HPI Comments Details: Tr returns for follow-up. In the past, he was seen regarding anginal-type symptoms. That led to noninvasive workup and then diagnostic catheterization. However, did not have any interventions performed. He is maintained on medical therapy for stable CAD. In the last 6 months, he has used nitroglycerin only Once. Otherwise, doing well. Seems to be getting along okay. [facility] Medical History (Updated 11/13/23 @ 12:43 by Wyatt Montalvo) Essential hypertension Hyperlipidemia Stable angina Normocytic anemia Anxiety with depression GERD (gastroesophageal reflux disease) Atherosclerotic cardiovascular disease Surgical History S/P cardiac catheterization History of appendectomy History of colonoscopy Family History Father Hx of type 1 diabetes mellitus Mother No problems noted. Family/Other Diabetes 1.5, managed as type 2 Family/Other Pancreatic cancer Family/Other Stented coronary artery Sister Cardiovascular disease Sister S/P triple vessel bypass Social History Household Members: Spouse Housing: House Alcohol intake: current Alcohol intake frequency: a few times a week Alcohol type: beer, wine, hard liquor and other Patient Tobacco Use Status: Never used Tobacco e-Cigarette/Vaping Use: Never Used Second Hand Smoke Exposure: No service: No Current occupational status: retired Current occupational exposures/hazards: No Cognitive needs: No Hearing needs: No Vision needs: No Review of Systems Const Denies chills, Denies fatigue, Denies fever(s), Denies weight gain and Denies weight loss ENT Denies dizziness Card Denies chest pain, Denies leg edema, Denies lightheadedness, Denies palpitations, Denies dyspnea on exertion, Denies orthopnea and Denies other Resp Denies cough and Denies dyspnea on exertion GI Denies hematochezia and Denies change in stool character Musc Denies abnormal gait, Denies muscle weakness, Denies numbness, Denies radiating pain into limb and Denies tingling Neuro Denies abnormal gait, Denies dizziness, Denies numbness and Denies tingling Endo Denies fatigue and Denies palpitations Physical Exam Vital Signs: Last Vital Signs Pulse 48 L 03/03/24 14:27 BP 110/74 03/03/24 14:27 BMI result Body Mass Index 24.8 Const General: comfortable and no acute distress Orientation/consciousness: patient oriented x3 HEENT Other: Unremarkable Head: Yes normal to inspection Neck Neck: Yes normal visual inspection Chest Chest palpation & inspection: normal inspection of the chest Resp Auscultation: clear to auscultation bilaterally Cardio Palpation: normal PMI Heart sounds: S1 normal heart sound present, S2 normal heart sound present, no gallops, no murmurs and no rubs GI Palpation (GI): Soft to palpation Back/Spine/Pelvis Other: unremarkable Skin General skin exam: no rashes or lesions noted Neuro General: patient oriented x3 Extrem General: Yes normal to inspection Psych Mental Status: mental status grossly normal Assessment & Plan Assessment & Plan (1) Atherosclerotic cardiovascular disease: Code(s): I25.10 - Atherosclerotic heart disease of [place] coronary artery without angina pectoris Category: Medical (2) Stable angina: Code(s): I20.89 - Other forms of angina pectoris Category: Medical (3) Essential hypertension: Code(s): I10 - Essential (primary) hypertension Category: Medical (4) Hyperlipidemia: Code(s): E78.5 - Hyperlipidemia, unspecified Category: Medical Qualifiers: Hyperlipidemia type: unspecified Qualified Code(s): E78.5 - Hyperlipidemia, unspecified Plan Cardiac studies reviewed. Echocardiogram with LVEF of 57%. No wall motion abnormalities and otherwise unremarkable. Myocardial perfusion imaging study showed moderate density right coronary artery territory ischemia. Cardiac catheterization data reviewed. Mid RCA 99% stenosis with heavy calcification. 50% proximal LAD stenosis; 30-40% proximal circumflex stenosis and 30% distal left main stenosis. Collateral from apical LAD to PDA. Overall, stable CAD with rare anginal symptoms. Continue aspirin and Plavix. Plavix possibly for about an year or so total. Continue beta-blockers. Continue amlodipine for blood pressure. He is on statins. LFTs slightly high. We need to recheck that. Avoid strenuous activities. Also discussed about avoiding Viagra. If any recurrent anginal-type symptoms, he will contact us immediately. Discussed with significant other. Orders: Orders Lipid Panel Today Brennan Lancaster MD E78.5 - Hyperlipidemia, unspecified Liver Panel Today Brennan Lancaster MD E78.5 - Hyperlipidemia, unspecified Medications: Changed From amlodipine 5 mg PO DAILY 90 days 90 tabs 3RF To amlodipine 2.5 mg PO DAILY Varinder Murillo MD Refilled nitroglycerin Take 1 tablet for chest pain every 5 mins until chest pain resolved. Not exceed 3 doses per episode 0.4 mg sublingual Q5M PRN 30 tabs 5RF chest pain Brennan Lancaster MD Coding Level of Care Code Est Pt Level 4 (63486) Diagnoses Atherosclerotic cardiovascular disease I25.10 Stable angina I20.89 Essential hypertension I10 Hyperlipidemia, unspecified hyperlipidemia type E78.5 Hyperlipidemia type: unspecified
== END 2024-03-03 15:20 | disposition home or self-care (01) ==
PROVIDERS: PCP Family Medicine; Visit Provider Internal Medicine
DX: I25.118 Atherosclerotic heart disease of native coronary artery with other forms of angina pectoris (principal); I10 Essential (primary) hypertension; E78.5 Hyperlipidemia, unspecified
CPT/HCPCS: 99214

== ENCOUNTER → 2024-03-03 14:09 | Outpatient (BNVA) | payer BC, SELFPAY | PROVIDERS: PCP Family Medicine; Visit Provider Internal Medicine ==

== ENCOUNTER 2024-03-07 11:21 | Outpatient (REF) | payer BC, SELFPAY ==
[2024-03-07 21:37] LABS: Alanine Aminotransferase 45 U/L (0-40); Albumin Level 4.2 g/dL (3.5-5.0); Alkaline Phosphatase 65 U/L (39-117); Aspartate Amino Transferase 33 U/L (5-37); Bilirubin Direct 0.2 mg/dL (0.0-0.5); Bilirubin Total 0.6 mg/dL (0.0-1.0); Cholesterol 139 mg/dL (<200); HDL Cholesterol 42 mg/dL (>40); LDL Cholesterol Calculated 56 mg/dL (<100); Total Protein 7.5 g/dL (6.5-8.0); Triglycerides 209 mg/dL (<150)
== END 2024-03-07 11:22 | disposition home or self-care (01) ==
LOC: HO.WFDLDS 11:21
PROVIDERS: Visit Provider Internal Medicine
DX: E78.5 Hyperlipidemia, unspecified (principal)
CPT/HCPCS: 36415; 80061; 80076

== ENCOUNTER 2024-06-02 11:06 | Outpatient (AMB) | payer BC, SELFPAY ==
--- NOTE | 2024-06-02 11:58 | MHC.PC.OV ---
Vital Signs 06/02/24 12:02 Height 5 ft 11 in Weight 181 lb 8 oz BMI 25.3 BP 117/57 L Blood Pressure Location Rt brachial Position Sitting Respiration 14 Pulse 46 L Pulse Source Pulse Oximeter Temp 96.6 F L Temp Source Temporal Artery Scan Pulse Oximetry (%) 98 Oxygen Delivery Method Room Air Intake Visit Reasons: f/u diabetes, hypertension Intake Note: f/u for DM and HTN Allergies amoxapine Adverse Reaction (Mild, Verified 06/02/24 12:00) rash Medication List - Last Reconciled 06/02/24 by Varinder Murillo MD alprazolam 0.5 mg AM and 1.0 mg PM PO 2 times a day PRN; 45 tabs per 30 days. MassPat verified. Partial refill upon request. 30 days amlodipine 2.5 mg PO DAILY aspirin 81 mg PO DAILY atorvastatin 40 mg PO BEDTIME clopidogrel 75 mg PO DAILY duloxetine 60 mg PO DAILY 90 days flu vacc [id number](65yr up)-PF mL IM ibuprofen 1 to 2 tabs orally every 8 hours PRN; 90 days metformin 250 mg (1/2 x 500 mg) PO DAILY 90 days metoprolol succinate ER (Toprol XL) 50 mg PO DAILY nitroglycerin 0.4 mg sublingual Q5M PRN Tobacco use date assessed: 11/13/23 Dental Screening Dental Screen Date: 11/13/23 HPI f/u diabetes, hypertension HPI Details 68 y/o male presents to f/u diabetes, hypertension. Saw Cardiology 03/03/24 for atherosclerotic cardiovascular disease. Recommended he continue aspirin/plavix, beta-blockers. Blood pressure today 117/57, 46p. He is on amlodipine 2.5mg, metoprolol 50mg daily. He notes fatigue and attributes this to his medication regimen. Recent labs drawn 03/07/24. Reviewed labs with pt. Triglycerides 209. TC 139. LDL 56. HDL 42. He is on artovastatin 40mg. A1c today 06/02/24 6.3%. [facility] Medical History (Updated 11/13/23 @ 12:43 by Wyatt Montalvo) Essential hypertension Hyperlipidemia Stable angina Normocytic anemia Anxiety with depression GERD (gastroesophageal reflux disease) Atherosclerotic cardiovascular disease Surgical History S/P cardiac catheterization History of appendectomy History of colonoscopy Family History Father Hx of type 1 diabetes mellitus Mother No problems noted. Family/Other Diabetes 1.5, managed as type 2 Family/Other Pancreatic cancer Family/Other Stented coronary artery Sister Cardiovascular disease Sister S/P triple vessel bypass Social History Household Members: Spouse Housing: House Alcohol intake: current Alcohol intake frequency: a few times a week Alcohol type: beer, wine, hard liquor and other Patient Tobacco Use Status: Never used Tobacco e-Cigarette/Vaping Use: Never Used Second Hand Smoke Exposure: No service: No Current occupational status: retired Current occupational exposures/hazards: No Cognitive needs: No Hearing needs: No Vision needs: No Questionnaire Thrive Questionnaire Date Thrive assessed: 11/13/23 MEGHANN-7 AMB Questionnaire MEGHANN-7 Date MEGHANN - 7 assessed: 11/13/23 Source: Developed by Drs. Lucio Adams, Melisa Kline, Paulo Ryan and colleagues, with an educational iris from [employer]. Review of Systems Const Denies chills, Reports fatigue, Denies fever(s), Denies headache(s) and Denies weakness ENT Denies dizziness and Denies headache(s) Card Denies dyspnea Resp Denies cough, Denies dyspnea, Denies wheezing and Denies other (shortness of breath) Musc Denies numbness and Denies tingling Neuro Denies dizziness, Denies headache(s), Denies numbness, Denies tingling and Denies weakness Psych Denies anxiety and Denies depression Endo Reports fatigue Aller/Immun Denies wheezing Physical exam (Primary Care) Vital Signs: Last Vital Signs Temp 96.6 F L 06/02/24 12:02 Pulse 46 L 06/02/24 12:02 Resp 14 06/02/24 12:02 BP 117/57 L 06/02/24 12:02 Pulse Ox 98 06/02/24 12:02 Oxygen Delivery Method Room Air 06/02/24 12:02 BMI result Body Mass Index 25.3 Tobacco/Smoking Status: Tobacco use Status Tobacco use date assessed 11/13/23 06/02/24 11:59 Patient Tobacco Use Status Never used Tobacco 06/02/24 11:59 e-Cigarette/Vaping Use Never Used 06/02/24 11:59 Thrive Assessment: Date of Thrive Assessment Date Thrive assessed 11/13/23 06/02/24 11:59 Const General: well developed; No acute distress Nutritional Appearance: well nourished Orientation/consciousness: patient oriented x3 HENMT Head: Yes normocephalic and Yes atraumatic Eyes General: appearance normal, both eyes and all related structures Pupils: Equal, round and reactive pupils present EOM: EOMs intact bilaterally Resp Effort & Inspection: normal respiratory effort Auscultation: clear to auscultation bilaterally Cardio Rate: regular rate Rhythm: regular rhythm Heart sounds: S1 normal heart sound present, S2 normal heart sound present, no gallops, no murmurs and no rubs Neuro General: patient oriented x3 and gait normal Cranial nerves: Yes Equal, round and reactive pupils present Psych Affect: normal affect Coding Level of Care Code Est Pt Level 4 (13148) Diagnoses Essential hypertension I10 Atherosclerotic cardiovascular disease I25.10 Diabetes E11.9 Anxiety with depression F41.8 Assessment & Plan Assessment & Plan (1) Essential hypertension: Code(s): I10 - Essential (primary) hypertension Category: Medical Plan: Blood?pressure?is?controlled?and?less?than?goal?of?130/80 Continue?current?medications (2) Atherosclerotic cardiovascular disease: Code(s): I25.10 - Atherosclerotic heart disease of [place] coronary artery without angina pectoris Category: Medical Plan: Multivessel?ischemia Patient?is?on?statin?and?blood?pressure?and?blood?sugars?have?been?well?controlled. LDL?cholesterol?is?at?goal?of?less?than?70.??His?triglycerides?are?a?little?high. Encouraged?him?to?work?on?a?diet?lower?in?saturated?fats?and?cholesterol?as?well?as?lower?in?sugars?and?sweets. Follow-up?with?Cardiology?as?recommended (3) Diabetes: Code(s): E11.9 - Type 2 diabetes mellitus without complications Category: Medical Plan: A1c?today: 6.3%?is?a?little?higher?than?in?February;?6.2% Goal?is?less?than?7.0% Continue?current?medication Encouraged diet?lower?in?sugars?and?starches. (4) Anxiety with depression: Code(s): F41.8 - Other specified anxiety disorders Category: Medical Plan: Ongoing?dysthymia. Stable Offered?therapist?and?patient?declined Continue?current?medications Medications: Refilled alprazolam 0.5 mg AM and 1.0 mg PM PO 2 times a day PRN; 45 tabs per 30 days. MassPat verified. Partial refill upon request. 30 days 45 tabs 0RF anxiety E78.5 - Hyperlipidemia, unspecified metformin 250 mg (1/2 x 500 mg) PO DAILY 90 days 45 tabs 1RF
[2024-06-02 12:02] VITALS: BP 117/57; PULSE 46; RESP 14; TEMP 35.9; O2SAT 98; BMI 25.3
== END 2024-06-02 12:56 | disposition home or self-care (01) ==
PROVIDERS: PCP Family Medicine; Visit Provider Family Medicine
DX: I10 Essential (primary) hypertension (principal); I25.10 Atherosclerotic heart disease of native coronary artery without angina pectoris; E11.9 Type 2 diabetes mellitus without complications; F41.8 Other specified anxiety disorders

== ENCOUNTER → 2024-06-02 11:06 | Outpatient (BNVA) | payer BC, SELFPAY | PROVIDERS: PCP Family Medicine; Visit Provider Family Medicine ==

== ENCOUNTER 2024-09-02 14:20 | Outpatient (AMB) | payer BC, SELFPAY ==
[2024-09-02 14:23] VITALS: BP 120/64; PULSE 44; BMI 24.6
--- NOTE | 2024-09-02 14:23 | MHC.OFFVIS ---
Vital Signs 09/02/24 14:23 Height 5 ft 11 in Weight 176 lb 5.917 oz BMI 24.6 BP 120/64 Blood Pressure Location Lt brachial Position Sitting Pulse 44 L Pulse Source Monitor Intake Visit Reasons: 6 mth f/up Allergies amoxapine Adverse Reaction (Mild, Verified 06/02/24 12:00) rash Medication List - Last Reconciled 09/02/24 by Brennan Lancaster MD alprazolam 0.5 mg AM and 1.0 mg PM PO 2 times a day PRN; 45 tabs per 30 days. MassPat verified. Partial refill upon request. 30 days amlodipine 2.5 mg PO DAILY aspirin 81 mg PO DAILY atorvastatin 40 mg PO BEDTIME clopidogrel 75 mg PO DAILY duloxetine 60 mg PO DAILY 90 days flu vacc [id number](65yr up)-PF mL IM ibuprofen 1 to 2 tabs orally every 8 hours PRN; 90 days metformin 250 mg (1/2 x 500 mg) PO DAILY 90 days metoprolol succinate ER 50 mg PO DAILY nitroglycerin 0.4 mg sublingual Q5M PRN HPI Comments Details: Tr returns for follow-up. In the past, he was seen regarding anginal-type symptoms. That led to noninvasive workup and then diagnostic catheterization. However, did not have any interventions performed. He is maintained on medical therapy for stable CAD. Overall, he states he feels fine for the most part. Sometimes he gets tired and fatigue. He does have bradycardia on EKG and hence possibly related to beta-blockers but not clear. No angina whatsoever. Otherwise feels fine. COUNT INCLUDES THE [facility] Medical History (Updated 11/13/23 @ 12:43 by Wyatt Montalvo) Essential hypertension Hyperlipidemia Stable angina Normocytic anemia Anxiety with depression GERD (gastroesophageal reflux disease) Atherosclerotic cardiovascular disease Surgical History S/P cardiac catheterization History of appendectomy History of colonoscopy Family History Father Hx of type 1 diabetes mellitus Mother No problems noted. Family/Other Diabetes 1.5, managed as type 2 Family/Other Pancreatic cancer Family/Other Stented coronary artery Sister Cardiovascular disease Sister S/P triple vessel bypass Social History Household Members: Spouse Housing: House Alcohol intake: current Alcohol intake frequency: a few times a week Alcohol type: beer, wine, hard liquor and other Patient Tobacco Use Status: Never used Tobacco e-Cigarette/Vaping Use: Never Used Second Hand Smoke Exposure: No service: No Current occupational status: retired Current occupational exposures/hazards: No Cognitive needs: No Hearing needs: No Vision needs: No Review of Systems Const Denies weakness ENT Denies dizziness Card Denies chest pain, Denies chest pain with activity, Denies syncope, Denies rapid heart rate, Denies pedal edema, Denies edema, Denies leg edema, Denies lightheadedness, Denies palpitations, Denies dyspnea, Denies dyspnea on exertion and Denies orthopnea Resp Denies cough, Denies dyspnea and Denies dyspnea on exertion GI Denies hematochezia and Denies change in stool character Musc Denies abnormal gait, Denies muscle cramps, Denies muscle weakness, Denies numbness, Denies radiating pain into limb and Denies tingling Neuro Denies abnormal gait, Denies dizziness, Denies syncope, Denies numbness, Denies tingling and Denies weakness Endo Denies palpitations Physical Exam Vital Signs: Last Vital Signs Pulse 44 L 09/02/24 14:23 BP 120/64 09/02/24 14:23 BMI result Body Mass Index 24.6 Const General: comfortable and no acute distress Orientation/consciousness: patient oriented x3 HEENT Other: Unremarkable Head: Yes normal to inspection Neck Neck: Yes normal visual inspection Chest Chest palpation & inspection: normal inspection of the chest Resp Auscultation: clear to auscultation bilaterally Cardio Palpation: normal PMI Heart sounds: S1 normal heart sound present, S2 normal heart sound present, no gallops, no murmurs and no rubs GI Palpation (GI): Soft to palpation Back/Spine/Pelvis Other: unremarkable Skin General skin exam: no rashes or lesions noted Neuro General: patient oriented x3 Extrem General: Yes normal to inspection Psych Mental Status: mental status grossly normal Office Procedures EKG Details: EKG with sinus bradycardia at 44/Min; artifact in tracing; no significant ST-T changes and otherwise unremarkable[place] [id number], Complete Assessment & Plan Assessment & Plan (1) Atherosclerotic cardiovascular disease: Code(s): I25.10 - Atherosclerotic heart disease of [place] coronary artery without angina pectoris Category: Medical (2) Stable angina: Code(s): I20.89 - Other forms of angina pectoris Category: Medical (3) Essential hypertension: Code(s): I10 - Essential (primary) hypertension Category: Medical (4) Hyperlipidemia: Code(s): E78.5 - Hyperlipidemia, unspecified Category: Medical Qualifiers: Hyperlipidemia type: unspecified Qualified Code(s): E78.5 - Hyperlipidemia, unspecified Plan Cardiac studies reviewed. Echocardiogram with LVEF of 57%. No wall motion abnormalities and otherwise unremarkable. Myocardial perfusion imaging study showed moderate intensity right coronary artery territory ischemia. Cardiac catheterization data reviewed. Mid RCA 99% stenosis with heavy calcification. 50% proximal LAD stenosis; 30-40% proximal circumflex stenosis and 30% distal left main stenosis. Collateral from apical LAD to PDA. FOr medical management. Overall, stable CAD without any angina. Continue low-dose aspirin. May stop Plavix. With regard to beta-blockers, may cut back on the dose because of tiredness. Hence take Toprol-XL 25 mg daily. Continue amlodipine for blood pressure. On statins. Last LDL 56 mg/dL. Triglycerides slightly high at 209 mg/dL. ALT is slightly increased at 45 but better than before. Discussed with significant other. Medications: New metoprolol succinate ER (Toprol XL) 25 mg PO DAILY 90 tabs 1RF Discontinued clopidogrel Discontinued Reason: Doctor's Order 75 mg PO DAILY 30 tabs 6RF metoprolol succinate ER Discontinued Reason: Doctor's Order 50 mg PO DAILY 90 tabs 3RF Coding Level of Care Code Est Pt Level 4 (94059) Diagnoses Atherosclerotic cardiovascular disease I25.10 Stable angina I20.89 Essential hypertension I10 Hyperlipidemia, unspecified hyperlipidemia type E78.5 Hyperlipidemia type: unspecified CPT Codes EKG - CPT: 25644-[id number], Complete ([id number])
== END 2024-09-02 14:51 | disposition home or self-care (01) ==
PROVIDERS: PCP Family Medicine; Visit Provider Internal Medicine
DX: I25.118 Atherosclerotic heart disease of native coronary artery with other forms of angina pectoris (principal); I10 Essential (primary) hypertension; E78.5 Hyperlipidemia, unspecified; R00.1 Bradycardia, unspecified
CPT/HCPCS: 93010; 99214

== ENCOUNTER → 2024-09-02 14:20 | Outpatient (BNVA) | payer BC, SELFPAY | PROVIDERS: PCP Family Medicine; Visit Provider Internal Medicine | DX: I25.118 Atherosclerotic heart disease of native coronary artery with other forms of angina pectoris (principal); I10 Essential (primary) hypertension; E78.5 Hyperlipidemia, unspecified; Z79.82 Long term (current) use of aspirin; Z79.899 Other long term (current) drug therapy | CPT/HCPCS: 93005 ==

== ENCOUNTER 2024-10-13 11:27 | Outpatient (AMB) | payer BC, SELFPAY ==
--- NOTE | 2024-10-13 11:53 | MHC.PC.OV ---
Vital Signs 10/13/24 12:06 Height 5 ft 11 in Weight 178 lb 8 oz BMI 24.9 BP 120/70 Blood Pressure Location Rt brachial Position Sitting Respiration 12 Pulse 53 Pulse Source Pulse Oximeter Temp 97.4 F Temp Source Oral Pulse Oximetry (%) 99 Oxygen Delivery Method Room Air Intake Visit Reasons: f/u hypertension, diabetes, chronic conditions Intake Note: f/u htn and dm Allergies amoxapine Adverse Reaction (Mild, Verified 10/13/24 11:54) rash Medication List - Last Reconciled 10/13/24 by Varinder Murillo MD alprazolam 0.5 mg AM and 1.0 mg PM PO 2 times a day PRN; 45 tabs per 30 days. MassPat verified. Partial refill upon request. 30 days amlodipine 2.5 mg PO DAILY aspirin 81 mg PO DAILY atorvastatin 40 mg PO BEDTIME duloxetine 60 mg PO DAILY 90 days flu vacc [id number](65yr up)-PF mL IM ibuprofen 1 to 2 tabs orally every 8 hours PRN; 90 days metformin 250 mg (1/2 x 500 mg) PO DAILY 90 days metoprolol succinate ER (Toprol XL) 25 mg PO DAILY nitroglycerin 0.4 mg sublingual Q5M PRN Tobacco use date assessed: 11/13/23 Dental Screening Dental Screen Date: 11/13/23 HPI f/u hypertension, diabetes, chronic conditions HPI Details 69 y/o male presents to f/u HTN, diabetes, chronic conditions. Last A1c 06/02/24 6.3%. A1c today 10/13/24 is 6.7%. He is on metformin 250mg daily. Blood pressure today 120/70. He is on metoprolol 25mg, amlodipine 2.5mg daily. He reports he has been feeling fatigued. [facility] Medical History (Updated 10/13/24 @ 12:22 by Wyatt Montalvo) Essential hypertension Hyperlipidemia Stable angina Normocytic anemia Anxiety with depression GERD (gastroesophageal reflux disease) Atherosclerotic cardiovascular disease Surgical History S/P cardiac catheterization History of appendectomy History of colonoscopy Family History Father Hx of type 1 diabetes mellitus Mother No problems noted. Family/Other Diabetes 1.5, managed as type 2 Family/Other Pancreatic cancer Family/Other Stented coronary artery Sister Cardiovascular disease Sister S/P triple vessel bypass Social History Household Members: Spouse Housing: House Alcohol intake: current Alcohol intake frequency: a few times a week Alcohol type: beer, wine, hard liquor and other Patient Tobacco Use Status: Never used Tobacco e-Cigarette/Vaping Use: Never Used Second Hand Smoke Exposure: No service: No Current occupational status: retired Current occupational exposures/hazards: No Cognitive needs: No Hearing needs: No Vision needs: No Questionnaire PHQ-9 Over the last 2 weeks, how often have you been bothered by any of the following problems? 6. Feeling bad about yourself - or that you are a failure or have let yourself or your family down: nearly every day Source: Developed by Drs. Lucio Adams, Melisa Kline, Paulo Ryan and colleagues, with an educational iris from [employer]. Thrive Questionnaire Date Thrive assessed: 10/13/24 I am a: Patient MEGHANN-7 AMB Questionnaire MEGHANN-7 Date MEGHANN - 7 assessed: 11/13/23 Source: Developed by Drs. Lucio Adams, Melisa Kline, Paulo Ryan and colleagues, with an educational iris from [employer]. Review of Systems Const Reports fatigue, Denies headache(s) and Denies weakness ENT Denies dizziness and Denies headache(s) Card Denies dyspnea Resp Denies cough, Denies dyspnea, Denies wheezing and Denies other (shortness of breath) Musc Denies numbness and Denies tingling Neuro Denies dizziness, Denies headache(s), Denies numbness, Denies tingling and Denies weakness Psych Denies anxiety and Denies depression Endo Reports fatigue Aller/Immun Denies wheezing Physical exam (Primary Care) Vital Signs: Last Vital Signs Temp 97.4 F 10/13/24 12:06 Pulse 53 10/13/24 12:06 Resp 12 10/13/24 12:06 BP 120/70 10/13/24 12:06 Pulse Ox 99 10/13/24 12:06 Oxygen Delivery Method Room Air 10/13/24 12:06 BMI result Body Mass Index 24.9 Tobacco/Smoking Status: Tobacco use Status Tobacco use date assessed 11/13/23 10/13/24 12:01 Patient Tobacco Use Status Never used Tobacco 10/13/24 12:01 e-Cigarette/Vaping Use Never Used 10/13/24 12:01 Thrive Assessment: Date of Thrive Assessment Date Thrive assessed 10/13/24 10/13/24 12:01 Const General: well developed; No acute distress Nutritional Appearance: well nourished Orientation/consciousness: patient oriented x3 HENMT Head: Yes normocephalic and Yes atraumatic Eyes General: appearance normal, both eyes and all related structures Pupils: Equal, round and reactive pupils present EOM: EOMs intact bilaterally Resp Effort & Inspection: normal respiratory effort Neuro General: patient oriented x3 and gait normal Cranial nerves: Yes Equal, round and reactive pupils present Psych Affect: normal affect Coding Level of Care Code Est Pt Level 4 (01602) Diagnoses Diabetes E11.9 Essential hypertension I10 Atherosclerotic cardiovascular disease I25.10 Fatigue R53.83 Assessment & Plan Assessment & Plan (1) Diabetes: Code(s): E11.9 - Type 2 diabetes mellitus without complications Category: Medical Plan: A1c?today?is?6.7%.??Controlled.??Goal?is?less?than?7.0% Continue?current?medication (2) Essential hypertension: Code(s): I10 - Essential (primary) hypertension Category: Medical Plan: Blood?pressure?is?controlled.??Goal?is?less?than?130/80. Continue?current?medications (3) Atherosclerotic cardiovascular disease: Code(s): I25.10 - Atherosclerotic heart disease of [place] coronary artery without angina pectoris Category: Medical Plan: Stable f/u w/ Cardiology as recommended. (4) Fatigue: Code(s): R53.83 - Other fatigue Category: Medical Plan: Recent?viral?illness. Appears?to?be?improving Lungs?are?clear?today. Hydrate?well Get?plenty?of?rest Orders: Orders Comprehensive Met. Panel Today R53.83 - Other fatigue Complete Blood Count Auto Diff Today R53.83 - Other fatigue, Z00.00 - Encounter for general adult medical examination without abnormal findings TSH reflex Free T4 Today R53.83 - Other fatigue, Z00.00 - Encounter for general adult medical examination without abnormal findings
[2024-10-13 12:06] VITALS: BP 120/70; PULSE 53; RESP 12; TEMP 36.3; O2SAT 99; BMI 24.9
== END 2024-10-13 12:25 | disposition home or self-care (01) ==
PROVIDERS: PCP Family Medicine; Visit Provider Family Medicine
DX: E11.9 Type 2 diabetes mellitus without complications (principal); I10 Essential (primary) hypertension; I25.10 Atherosclerotic heart disease of native coronary artery without angina pectoris; R53.83 Other fatigue

== ENCOUNTER → 2024-10-13 11:27 | Outpatient (BNVA) | payer BC, SELFPAY | PROVIDERS: PCP Family Medicine; Visit Provider Family Medicine ==

== ENCOUNTER 2025-01-08 07:51 | Outpatient (REF) | payer BC, SELFPAY ==
[2025-01-08 11:05] LABS: MANUAL DIFF FLAG NO
[2025-01-08 11:19] LABS: Basophils Percent Auto 0.3 % (0-2); Eosinophils Absolute Auto 0.2 X10*3/uL (0.0-0.4); Eosinophils Percent Auto 2.1 % (0-4); Hematocrit 39.4 % (42.0-52.0); Hemoglobin 13.5 g/dl (14.0-18.0); Imm Gran Abs Auto 0.02 X10*3/uL (0.00-0.03); Imm Gran Pct Auto 0.3 % (0.0-0.4); Lymphocytes Absolute Auto 2.7 X10*3/uL (1.2-4.9); Mean Corpuscular HGB Conc 34.3 g/dl (31.0-36.0); Mean Corpuscular Hemoglobin 30.8 pg (27.0-33.0); Mean Corpuscular Volume 89.7 fL (80.0-98.0); Mean Platelet Volume 11.5 fL (9.4-12.4); Monocytes Absolute Auto 0.5 X10*3/uL (0.1-1.2); Monocytes Percent Auto 7.4 % (2-11); Neutrophils Absolute Auto 3.8 x10*3/uL (2.0-8.3); Neutrophils Percent Auto 51.9 % (45-73); Platelet Count 165 X10*3/uL (160-400); Red Blood Count 4.39 X10*6/uL (4.60-5.80); Red Cell Distribution Width 12.3 % (11.0-16.0); White Blood Count 7.2 X10*3/uL (4.8-10.8)
[2025-01-08 13:03] LABS: Alanine Aminotransferase 72 U/L (0-40); Albumin Level 4.5 g/dL (3.5-5.0); Alkaline Phosphatase 69 U/L (39-117); Anion Gap 11 (12-20); Aspartate Amino Transferase 64 U/L (5-37); Bilirubin Total 0.8 mg/dL (0.0-1.0); Blood Urea Nitrogen 16 mg/dL (9-16); Calcium 9.5 mg/dL (8.4-10.2); Carbon Dioxide 29 mmol/L (22-29); Chloride 105 mmol/L (96-108); Estimated Glomerular Filt Rate > 60; Glucose Random 136 mg/dL (60-115); Potassium 3.9 mmol/L (3.3-5.1); Sodium 141 mmol/L (135-145); TSH reflex Free T4 1.81 uIU/mL (0.32-4.0); Total Protein 7.7 g/dL (6.5-8.0)
== END 2025-01-08 07:52 | disposition home or self-care (01) ==
LOC: HO.WFDLDS 07:51
PROVIDERS: Visit Provider Family Medicine
DX: Z00.00 Encounter for general adult medical examination without abnormal findings (principal); E11.9 Type 2 diabetes mellitus without complications; R53.83 Other fatigue
CPT/HCPCS: 36415; 80053; 84443; 85025

== ENCOUNTER 2025-01-13 10:57 | Outpatient (AMB) | payer BC, SELFPAY ==
--- NOTE | 2025-01-13 11:10 | MHC.PC.OV ---
Vital Signs 01/13/25 11:17 Height 5 ft 11 in Weight 176 lb 2 oz BMI 24.6 BP 120/70 Blood Pressure Location Lt brachial Position Sitting Respiration 14 Pulse 57 Pulse Source Pulse Oximeter Temp 97.3 F Temp Source Oral Pulse Oximetry (%) 99 Oxygen Delivery Method Room Air Intake Visit Reasons: f/u HTN, labs, chronic conditions Intake Note: patient is scheduled for follow-up for labs and chronic conditions. Patient was information about shingles shot that he had a while ago. Allergies amoxapine Adverse Reaction (Mild, Verified 01/13/25 11:15) rash Medication List - Last Reconciled 01/13/25 by Varinder Murillo MD alprazolam 0.5 mg AM and 1.0 mg PM PO 2 times a day PRN; 45 tabs per 30 days. MassPat verified. Partial refill upon request. 30 days amlodipine 2.5 mg PO DAILY aspirin 81 mg PO DAILY atorvastatin 40 mg PO BEDTIME duloxetine 60 mg PO DAILY 90 days flu vacc [id number](65yr up)-PF mL IM ibuprofen 1 to 2 tabs orally every 8 hours PRN; 90 days metformin 250 mg (1/2 x 500 mg) PO DAILY 90 days metoprolol succinate ER (Toprol XL) 25 mg PO DAILY nitroglycerin 0.4 mg sublingual Q5M PRN Tobacco use date assessed: 01/13/25 Fall risk assessment: No Falls in past year Dental Screening Dental Screen Date: 11/13/23 Did you have a dental visit in the last 12 months?: No Did you have a dental problem in the last 6 months where you did not have access to dental care?: No Was dental information given to patient?: No HPI f/u HTN, labs, chronic conditions HPI Details 69 y/o male presents to f/u HTN, labs, chronic conditions. Blood pressure today 120/70, 57p. He is on metoprolol 25mg daily, amlodopine 2.5mg. Denies any issues with his blood pressure meds. Labs drawn 01/08/25. Reviewed labs with pt. Mild anemia. Elevated liver enzymes - AST 64, ALT 72. Pt notes metformin continues to bother him. A1c today 6.4%. HPI Comments History of Present Illness Details Documentation assistance for Varinder Murillo MD, was provided by Wyatt Montalvo,? [employer] on 01/13/2025 at 11:47 AM EST. I, Dr. Murillo, have read, observed, and verified documentation. ? [facility] Medical History (Updated 01/13/25 @ 12:07 by Wyatt Montalvo) Essential hypertension Hyperlipidemia Stable angina Normocytic anemia Anxiety with depression GERD (gastroesophageal reflux disease) Atherosclerotic cardiovascular disease Surgical History S/P cardiac catheterization History of appendectomy History of colonoscopy Family History Father Hx of type 1 diabetes mellitus Mother No problems noted. Family/Other Diabetes 1.5, managed as type 2 Family/Other Pancreatic cancer Family/Other Stented coronary artery Sister Cardiovascular disease Sister S/P triple vessel bypass Social History Household Members: Spouse Housing: House Alcohol intake: current Alcohol intake frequency: a few times a week Alcohol type: beer, wine, hard liquor and other Patient Tobacco Use Status: Never used Tobacco e-Cigarette/Vaping Use: Never Used Second Hand Smoke Exposure: No service: No Current occupational status: retired Current occupational exposures/hazards: No Cognitive needs: No Hearing needs: No Vision needs: No Questionnaire Thrive Questionnaire Date Thrive assessed: 10/13/24 I am a: Patient MEGHANN-7 AMB Questionnaire MEGHANN-7 Date MEGHANN - 7 assessed: 11/13/23 Source: Developed by Drs. Lucio Adams, Melisa Kline, Paulo Ryan and colleagues, with an educational iris from [employer]. Review of Systems Const Denies chills, Denies fatigue, Denies fever(s), Denies headache(s) and Denies weakness ENT Denies dizziness and Denies headache(s) Card Denies dyspnea Resp Denies cough, Denies dyspnea, Denies wheezing and Denies other (shortness of breath) Musc Denies numbness and Denies tingling Neuro Denies dizziness, Denies headache(s), Denies numbness, Denies tingling and Denies weakness Psych Denies anxiety and Denies depression Endo Denies fatigue Aller/Immun Denies wheezing Physical exam (Primary Care) Vital Signs: Last Vital Signs Temp 97.3 F 01/13/25 11:17 Pulse 57 01/13/25 11:17 Resp 14 01/13/25 11:17 BP 120/70 01/13/25 11:17 Pulse Ox 99 01/13/25 11:17 Oxygen Delivery Method Room Air 01/13/25 11:17 BMI result Body Mass Index 24.6 Tobacco/Smoking Status: Tobacco use Status Tobacco use date assessed 01/13/25 01/13/25 11:22 Patient Tobacco Use Status Never used Tobacco 01/13/25 11:11 e-Cigarette/Vaping Use Never Used 01/13/25 11:11 Thrive Assessment: Date of Thrive Assessment Date Thrive assessed 10/13/24 01/13/25 11:11 Const General: well developed; No acute distress Nutritional Appearance: well nourished Orientation/consciousness: patient oriented x3 HENMT Head: Yes normocephalic and Yes atraumatic Eyes General: appearance normal, both eyes and all related structures Pupils: Equal, round and reactive pupils present EOM: EOMs intact bilaterally Resp Effort & Inspection: normal respiratory effort Auscultation: clear to auscultation bilaterally Cardio Rate: regular rate Rhythm: regular rhythm Heart sounds: S1 normal heart sound present, S2 normal heart sound present, no gallops, no murmurs and no rubs Neuro General: patient oriented x3 and gait normal Cranial nerves: Yes Equal, round and reactive pupils present Psych Affect: normal affect Coding Level of Care Code Est Pt Level 4 (72752) Diagnoses Essential hypertension I10 Mild anemia D64.9 Diabetes E11.9 Immunization counseling Z71.85 Elevated liver enzymes R74.8 Assessment & Plan Assessment & Plan (1) Essential hypertension: Code(s): I10 - Essential (primary) hypertension Category: Medical Plan: Blood?pressure?is?controlled.??Goal?is?less?than?130/80 Continue?current?medications (2) Mild anemia: Code(s): D64.9 - Anemia, unspecified Category: Medical Plan: Stable Will?continue?to?monitor?periodically (3) Diabetes: Code(s): E11.9 - Type 2 diabetes mellitus without complications Category: Medical Plan: A1c?6.4%.??Good?control.??Goal?is?less?than?7.0% Continue?current?medication?regimen He?does?still?notes?some?abdominal?discomfort?with?metformin.??He?is?making?tablet?in?2?parts?for?better?tolerability. Keep?working?at?diabetic?diet?and?exercise (4) Immunization counseling: Code(s): Z71.85 - Encounter for immunization safety counseling Category: Medical Plan: Patient?is?due?for?Shingrix Discussed?this?and?he?will?think?about?it (5) Elevated liver enzymes: Code(s): R74.8 - Abnormal levels of other serum enzymes Category: Medical Plan: Ongoing?elevated?liver?enzyme Last?ultrasound?in?2020?showed?hepatic?steatosis Repeat?ultrasound?with?elastography Hydrate?well Avoid?excessive?Tylenol?or?alcohol Watch?weight Will?recheck?liver?enzymes?with?next?lab?draw Orders: Orders US abdomen peraza w elastography Today R74.8 - Abnormal levels of other serum enzymes Prostate Specific Antigen Scr Today Z12.5 - Encounter for screening for malignant neoplasm of prostate Microalbumin, Random (w Creat) Today I10 - Essential (primary) hypertension UA CC w/rflx Micro + Cult Today Z00.00 - Encounter for general adult medical examination without abnormal findings Comprehensive [place]. Panel Fast Today Z00.00 - Encounter for general adult medical examination without abnormal findings Lipid Panel Today Z00.00 - Encounter for general adult medical examination without abnormal findings TSH reflex Free T4 Today Z00.00 - Encounter for general adult medical examination without abnormal findings Medications: Refilled ibuprofen 1 to 2 tabs orally every 8 hours PRN; 90 days 540 tabs 1RF pain
[2025-01-13 11:17] VITALS: BP 120/70; PULSE 57; RESP 14; TEMP 36.3; O2SAT 99; BMI 24.6
== END 2025-01-13 15:51 | disposition home or self-care (01) ==
LOC: HO.HMCFM 10:57
PROVIDERS: PCP Family Medicine; Visit Provider Family Medicine
DX: I10 Essential (primary) hypertension (principal); D64.9 Anemia, unspecified; E11.9 Type 2 diabetes mellitus without complications; Z71.85 Encounter for immunization safety counseling; R74.8 Abnormal levels of other serum enzymes

== ENCOUNTER → 2025-01-13 10:57 | Outpatient (BNVA) | payer BC, SELFPAY | PROVIDERS: PCP Family Medicine; Visit Provider Family Medicine | DX: E11.9 Type 2 diabetes mellitus without complications (principal); I10 Essential (primary) hypertension; D64.9 Anemia, unspecified; R74.8 Abnormal levels of other serum enzymes; Z71.85 Encounter for immunization safety counseling | CPT/HCPCS: 83036 ==

== ENCOUNTER 2025-02-19 07:51 | Outpatient (REF) | payer BC, SELFPAY ==
[2025-02-19 11:34] LABS: Alanine Aminotransferase 51 U/L (0-40); Albumin Level 4.7 g/dL (3.5-5.0); Alkaline Phosphatase 70 U/L (39-117); Anion Gap 12 (12-20); Aspartate Amino Transferase 31 U/L (5-37); Blood Urea Nitrogen 10 mg/dL (9-16); Calcium 9.5 mg/dL (8.4-10.2); Carbon Dioxide 30 mmol/L (22-29); Chloride 102 mmol/L (96-108); Cholesterol 118 mg/dL (<200); Estimated Glomerular Filt Rate > 60; HDL Cholesterol 40 mg/dL (>40); Potassium 4.2 mmol/L (3.3-5.1); Sodium 140 mmol/L (135-145); Total Protein 7.7 g/dL (6.5-8.0); Triglycerides 137 mg/dL (<150)
[2025-02-19 14:46] LABS: Appearance Urine Clear; Glucose Urine UA Negative (Negative); PH 6.0 (5.0-9.0); Specific Gravity - Urine 1.015 (1.005-1.025)
[2025-02-19 16:14] LABS: Microalbum/Creatinine Ratio Ur 12.3 ug/mg cr (<30)
== END 2025-02-19 07:52 | disposition home or self-care (01) ==
LOC: HO.WFDLDS 07:51
PROVIDERS: Visit Provider Family Medicine
DX: Z00.00 Encounter for general adult medical examination without abnormal findings (principal); Z12.5 Encounter for screening for malignant neoplasm of prostate; I10 Essential (primary) hypertension
CPT/HCPCS: 36415; 80053; 80061; 81003; 82043; 82570; 84153; 84443

== ENCOUNTER 2025-02-25 15:39 | Outpatient (AMB) | payer BC, SELFPAY ==
--- NOTE | 2025-02-25 15:44 | MHC.PC.OV ---
Vital Signs 02/25/25 15:55 Height 5 ft 11 in Weight 172 lb 4 oz BMI 24.0 BP 118/72 Blood Pressure Location Lt brachial Position Sitting Respiration 15 Pulse 50 Pulse Source Pulse Oximeter Temp 98.6 F Temp Source Temporal Artery Scan Pulse Oximetry (%) 98 Oxygen Delivery Method Room Air Intake Visit Reasons: CPE with f/u labs and health maint. Intake Note: Tr presents in the office today for his annual physical, follow up to his labs. Allergies amoxapine Adverse Reaction (Mild, Verified 02/25/25 15:49) rash Medication List - Last Reconciled 02/25/25 by Varinder Murillo MD alprazolam 0.5 mg AM and 1.0 mg PM PO 2 times a day PRN; 45 tabs per 30 days. MassPat verified. Partial refill upon request. 30 days amlodipine 2.5 mg PO DAILY aspirin 81 mg PO DAILY atorvastatin 40 mg PO BEDTIME duloxetine 60 mg PO DAILY 90 days flu vacc [id number](65yr up)-PF mL IM ibuprofen 1 to 2 tabs orally every 8 hours PRN; 90 days metformin 250 mg (1/2 x 500 mg) PO DAILY 90 days metoprolol succinate ER 25 mg PO DAILY nitroglycerin 0.4 mg sublingual Q5M PRN omeprazole 20 mg PO DAILY 30 days Tobacco use date assessed: 02/25/25 Last assessed Fall Risk: 02/25/25 Dental Screening Dental Screen Date: 02/25/25 Did you have a dental visit in the last 12 months?: No Did you have a dental problem in the last 6 months where you did not have access to dental care?: No Was dental information given to patient?: Patient declined HPI CPE with f/u labs and health maint. HPI Details 69 y/o male presents for a CPE with f/u labs and health maint. Labs drawn 02/19/25. Reviewed labs with pt. Fasting glucose of 120. Elevated ALT of 51. Triglycerides 137. TC 118. LDL 51. HDL 40. He is on artovastatin 40mg. PSA 0.98. Blood pressure today 118/72, 50p. He is on metoprolol 25mg , amlodipine 2.5mg daily. A1c today 6.6%. Reports ongoing complaints of GERD. HPI Comments History of Present Illness Details Documentation assistance for Varinder Murillo MD, was provided by Wyatt Montalvo,? [employer] on 02/25/2025 at 4:27 PM EST. I, Dr. Murillo, have read, observed, and verified documentation. ? [facility] Medical History (Updated 02/25/25 @ 16:53 by Wyatt Montalvo) Essential hypertension Hyperlipidemia Stable angina Normocytic anemia Anxiety with depression GERD (gastroesophageal reflux disease) Atherosclerotic cardiovascular disease Surgical History S/P cardiac catheterization History of appendectomy History of colonoscopy Family History (Updated 02/25/25 @ 15:55 by Lucille Turner MA) Father Hx of type 1 diabetes mellitus Mother No problems noted. Family/Other Diabetes 1.5, managed as type 2 Family/Other Pancreatic cancer Family/Other Stented coronary artery Sister Cardiovascular disease Sister S/P triple vessel bypass Other Alcoholism Substance abuse Substance abuse affecting in first trimester, antepartum Social History (Updated 02/25/25 @ 15:55 by Lucille Turner MA) Household Members: Spouse Housing: House Alcohol intake: current Alcohol intake frequency: a few times a week Alcohol type: beer, wine, hard liquor and other Patient Tobacco Use Status: Never used Tobacco e-Cigarette/Vaping Use: Never Used Second Hand Smoke Exposure: No service: No Current occupational status: retired Current occupational exposures/hazards: No Cognitive needs: No Hearing needs: No Vision needs: No Questionnaire PHQ-9 Over the last 2 weeks, how often have you been bothered by any of the following problems? 1. Little interest or pleasure in doing things: several days 2. Feeling down, depressed, or hopeless: several days 3. Trouble falling or staying asleep, or sleeping too much: several days 4. Feeling tired or having little energy: several days 5. Poor appetite or overeating: several days 6. Feeling bad about yourself - or that you are a failure or have let yourself or your family down: several days 7. Trouble concentrating on things, such as reading the newspaper or watching television: several days 8. Moving or speaking so slowly that other people could have noticed. Or the opposite - being so fidgety or restless that you have been moving around a lot more than usual: not at all 9. Thoughts that you would be better off or of hurting yourself in some way: several days Total score: 8 Depression Screening Interpretation: Positive Depression Screening Done: Yes 43204 - PHQ-9 Billing: Yes Source: Developed by Drs. Lucio Adams, Melisa Kline, Paulo Ryan and colleagues, with an educational iris from [employer]. Thrive Questionnaire Date Thrive assessed: 10/13/24 I am a: Patient What is your living situation today?: I have a steady place to live Within the past 12 months, did the food you bought not last and you didn't have the money to get more?: Never true Within the past 12 months, did you worry whether your food would run out before you got money to buy more?: Never true Do you have trouble paying for medicines?: No Do you have trouble getting transportation to medical appointments?: No Do you have trouble paying your heating and electricity bill?: No Do you have trouble taking care of your child, family member or friend?: No Do you have trouble with day-to-day activities such as bathing, preparing meals, shopping, managing finances, etc.?: No Are you currently unemployed and looking for a job?: No Are you interested in more education?: No Please select the resources that you would like help with: None Currently or been in a relationship where the following occur: No concerns reported THRIVE Score: 0 AUDIT C Alcohol Use Questionnaire (AUDIT-C) 1. How often do you have a drink containing alcohol?: 2-3 times a week 2. How many drinks containing alcohol do you have on a typical day when you are drinking?: 1 or 2 3. How often do you have six or more drinks on one occasion?: Never Total Score: 3 MEGHANN-7 AMB Questionnaire MEGHANN-7 Date MEGHANN - 7 assessed: 02/25/25 Feeling nervous, anxious, or on edge: 1 = Several days Not being able to stop or control worryin = Nearly every day Worrying too much about different things: 3 = Nearly every day Trouble relaxin = More than half the days Being so restless that it is hard to sit still: 0 = Not at all Becoming easily annoyed or irritable: 2 = More than half the days Feeling afraid as if something awful might happen: 1 = Several days Total MEGHANN-7 score (0-4 normal; 5-9 mild; 10-14 moderate; 15-21 severe): 12 Source: Developed by Drs. Lucio Adams, Melisa Kline, Paulo Ryan and colleagues, with an educational iris from [employer]. MEGHANN-7 Assessment Billing MEGHANN-7 Assessment Tool: MEGHANN-7 Assessment 82705 Review of Systems Const Denies chills, Denies fatigue, Denies fever(s), Denies headache(s) and Denies weakness Eyes Denies change in vision ENT Denies dizziness, Denies headache(s), Denies hearing loss, Denies nasal congestion, Denies sinus pain, Denies sinus pressure and Denies sore throat Card Denies chest pain, Denies lightheadedness, Denies dyspnea and Denies other (palpitations) Resp Denies cough, Denies dyspnea and Denies wheezing GI Denies abdominal pain, Denies melena, Denies hematochezia, Denies change in bowel habits, Denies dyspepsia and Denies nausea Denies hematuria and Denies dysuria Musc Denies abnormal gait, Denies myalgias, Denies arthralgias, Denies numbness and Denies tingling Skin/Breast Denies rash, Denies unusual bruising and Denies wounds Neuro Denies abnormal gait, Denies dizziness, Denies headache(s), Denies memory loss, Denies numbness, Denies Sensory deficit (Neuro), Denies tingling and Denies weakness Psych Denies anxiety, Denies depression and Denies memory loss Endo Denies cold intolerance, Denies fatigue, Denies heat intolerance, Denies polydipsia and Denies polyuria Rios/Lymph Denies easy bleeding and Denies easy bruising Aller/Immun Denies wheezing Physical exam (Primary Care) Vital Signs: Last Vital Signs Temp 98.6 F 02/25/25 15:55 Pulse 50 02/25/25 15:55 Resp 15 02/25/25 15:55 BP 118/72 02/25/25 15:55 Pulse Ox 98 02/25/25 15:55 Oxygen Delivery Method Room Air 02/25/25 15:55 BMI result Body Mass Index 24.0 Tobacco/Smoking Status: Tobacco use Status Tobacco use date assessed 02/25/25 02/25/25 15:58 Patient Tobacco Use Status Never used Tobacco 02/25/25 15:55 e-Cigarette/Vaping Use Never Used 02/25/25 15:55 PHQ-9: PHQ-9 Score PHQ-9: Total score 8 02/25/25 16:27 Depression Screening Interpretation: Positive Thrive Assessment: Date of Thrive Assessment Date Thrive assessed 10/13/24 02/25/25 15:44 Currently or been in a relationship where the following occur: No concerns reported Const General: no acute distress, well developed, alert and awake Nutritional Appearance: well nourished Orientation/consciousness: patient oriented x3 HENMT Head: Yes normocephalic and Yes atraumatic Ears: hearing grossly normal bilaterally and TM's normal bilaterally General nose exam: Normal external nose present and Normal nares present Mouth: Normal oral and palatal mucosa present and moist mucous membranes Teeth and gingiva: dentition normal Throat: Yes posterior oropharynx normal Eyes General: appearance normal, both eyes and all related structures Pupils: Equal, round and reactive pupils present and Pupil accommodation reflex normal EOM: EOMs intact bilaterally Neck Neck: Yes normal visual inspection, Yes no lymphadenopathy and Yes trachea midline Thyroid: Thyroid normal Carotids: no bruits Lymphatic: no lymphadenopathy noted Chest Chest palpation & inspection: normal inspection of the chest Resp Effort & Inspection: normal respiratory effort Auscultation: clear to auscultation bilaterally Cardio Rate: regular rate Rhythm: regular rhythm Heart sounds: S1 normal heart sound present, S2 normal heart sound present, no gallops, no murmurs and no rubs Bruits: no abdominal aortic bruits and no carotid bruits GI Palpation (GI): No Abdominal aortic bruit present, Soft to palpation, nontender, No hepatosplenomegaly present and No Rebound tenderness present Auscultation: normal bowel sounds General: Yes no CVA tenderness Back/Spine/Pelvis Back: no CVA tenderness Cervical Spine: cervical ROM normal and No Cervical spine tenderness Thoracic/Lumbar Spine: thoraco-lumbar ROM normal, No pain with thoraco-lumbar ROM, No thoracic spinal tenderness and No lumbar spinal tenderness Skin Lesions: no lesions Rashes: no rashes Trauma: no lacerations or abrasions Wounds: no wounds Nails: normal Neuro General: patient oriented x3 Cranial nerves: Yes Equal, round and reactive pupils present Cognition (Neuro): normal cognition Gait exam (Neuro): Normal gait present Motor exam (neuro): 5/5 motor strength present throughout Sensory Exam: No Sensory deficit (Neuro) Deep tendon reflexes (DTR's): Right patellar reflex intensity grade: 2+ and Left patellar reflex intensity grade: 2+ Extrem General: Yes normal to inspection and No edema Psych Other: Some rambling and patient notes that he sometimes is forgetful or jumps from 1 topic to another. Also notes that he sometimes loses track of time/date. Appearance: grossly normal Affect: normal affect Attitude: cooperative Thought process: Tangential thought process present Results AMB Hemoglobin A1c AMB Hemoglobin A1c 6.6 % Last Edit by Lucille Turner MA on 02/25/25 16:36 Results Reviewed Results Reviewed: Laboratory Last Values Hgb A1c (Clinic) 6.6 % (4.0-6.0) H 02/25/25 16:29 Coding Level of Care Code Est Pt Prev Care >65y(75368) Diagnoses Adult general medical exam Z00.00 Essential hypertension I10 Diabetes E11.9 Gastroesophageal reflux disease without esophagitis K21.9 Esophagitis presence: without esophagitis Screening for prostate cancer Z12.5 Altered mental status R41.82 Additional Codes MEGHANN-7 Assessment Billing - MEGHNAN-7 Assessment Tool: MEGHANN-7 Assessment 72142 ([id number]) PHQ-9 - 43095 - PHQ-9 Billing: Yes ([id number]) Assessment & Plan Assessment & Plan (1) Adult general medical exam: Code(s): Z00.00 - Encounter for general adult medical examination without abnormal findings Category: Medical Plan: 69-year-old male presents for CPE Encouraged healthy diet and exercise as tolerated (2) Essential hypertension: Code(s): I10 - Essential (primary) hypertension Category: Medical Plan: Blood pressure is well controlled. Goal is less than 130/80 Continue current medication (3) Diabetes: Code(s): E11.9 - Type 2 diabetes mellitus without complications Category: Medical Plan: A1c climbed slightly but still controlled at 6.6%. Goal Is less than 7% Continue current medication Encouraged diet lower in sugars and starches (4) GERD (gastroesophageal reflux disease): Code(s): K21.9 - Gastro-esophageal reflux disease without esophagitis Category: Medical Qualifiers: Esophagitis presence: without esophagitis Qualified Code(s): K21.9 - Gastro-esophageal reflux disease without esophagitis Plan: GERD symptoms every day Resume omeprazole Will refer him back to gastroenterology Can f/u on Colon cancer screening also. (5) Screening for prostate cancer: Code(s): Z12.5 - Encounter for screening for malignant neoplasm of prostate Category: Medical Plan: PSA was within normal range Will continue annual screening (6) Altered mental status: Code(s): R41.82 - Altered mental status, unspecified Category: Medical Plan: Patient notes some changes in mental status, memory and orientation. Will evaluate with mini cog at next visit Orders: Orders AMB Hemoglobin A1c Today E11.9 - Type 2 diabetes mellitus without complications, R73.03 - Prediabetes Referrals Gastroenterology Referral K21.9 - Gastro-esophageal reflux disease without esophagitis Medications: New omeprazole 20 mg PO DAILY 30 caps 6RF 30 days
[2025-02-25 15:55] VITALS: BP 118/72; PULSE 50; RESP 15; TEMP 37; O2SAT 98; BMI 24.0
== END 2025-02-25 16:52 | disposition home or self-care (01) ==
LOC: HO.HMCFM 15:40
PROVIDERS: PCP Family Medicine; Visit Provider Family Medicine
DX: Z00.00 Encounter for general adult medical examination without abnormal findings (principal); E11.9 Type 2 diabetes mellitus without complications; I10 Essential (primary) hypertension; K21.9 Gastro-esophageal reflux disease without esophagitis; Z12.5 Encounter for screening for malignant neoplasm of prostate; R41.82 Altered mental status, unspecified

== ENCOUNTER → 2025-02-25 15:39 | Outpatient (BNVA) | payer BC, SELFPAY | PROVIDERS: PCP Family Medicine; Visit Provider Family Medicine | DX: Z00.00 Encounter for general adult medical examination without abnormal findings (principal); F41.9 Anxiety disorder, unspecified; F34.1 Dysthymic disorder; I10 Essential (primary) hypertension; E11.9 Type 2 diabetes mellitus without complications; K21.9 Gastro-esophageal reflux disease without esophagitis; R41.82 Altered mental status, unspecified | CPT/HCPCS: 83036; 96127 ==

== ENCOUNTER 2025-03-02 12:08 | Outpatient (AMB) | payer BC, SELFPAY ==
--- NOTE | 2025-03-02 12:36 | MHC.OFFVIS ---
Vital Signs 03/02/25 12:37 Height 5 ft 11 in Weight 174 lb 2.643 oz BMI 24.3 BP 130/66 Blood Pressure Location Lt brachial Position Sitting Pulse 52 Pulse Source Pulse Oximeter Intake Visit Reasons: 6 mth f/up Allergies amoxapine Adverse Reaction (Mild, Verified 02/25/25 15:49) rash Medication List - Last Reconciled 03/02/25 by Brennan Lancaster MD alprazolam 0.5 mg AM and 1.0 mg PM PO 2 times a day PRN; 45 tabs per 30 days. MassPat verified. Partial refill upon request. 30 days amlodipine 2.5 mg PO DAILY aspirin 81 mg PO DAILY atorvastatin 40 mg PO BEDTIME duloxetine 60 mg PO DAILY 90 days ibuprofen 1 to 2 tabs orally every 8 hours PRN; 90 days metformin 250 mg (1/2 x 500 mg) PO DAILY 90 days metoprolol succinate ER 25 mg PO DAILY nitroglycerin 0.4 mg sublingual Q5M PRN omeprazole 20 mg PO DAILY 30 days HPI Comments Details: Tr returns for follow-up. In the past, he was seen regarding anginal-type symptoms. That led to noninvasive workup and then diagnostic catheterization. However, did not have any interventions performed. He is maintained on medical therapy for stable CAD. Since last seen, he states he is actually feeling quite good. No new concerns. He has had some tiredness in the past and feels just about the same as before. Beta-blockers were actually cut back in the past. Otherwise, feels well. No angina. [facility] Medical History (Updated 02/25/25 @ 16:53 by Wyatt Montalvo) Essential hypertension Hyperlipidemia Stable angina Normocytic anemia Anxiety with depression GERD (gastroesophageal reflux disease) Atherosclerotic cardiovascular disease Surgical History S/P cardiac catheterization History of appendectomy History of colonoscopy Family History (Updated 02/25/25 @ 15:55 by Lucille Turner MA) Father Hx of type 1 diabetes mellitus Mother No problems noted. Family/Other Diabetes 1.5, managed as type 2 Family/Other Pancreatic cancer Family/Other Stented coronary artery Sister Cardiovascular disease Sister S/P triple vessel bypass Other Alcoholism Substance abuse Substance abuse affecting in first trimester, antepartum Social History (Updated 02/25/25 @ 15:55 by Lucille Turner MA) Household Members: Spouse Housing: House Alcohol intake: current Alcohol intake frequency: a few times a week Alcohol type: beer, wine, hard liquor and other Patient Tobacco Use Status: Never used Tobacco e-Cigarette/Vaping Use: Never Used Second Hand Smoke Exposure: No service: No Current occupational status: retired Current occupational exposures/hazards: No Cognitive needs: No Hearing needs: No Vision needs: No Review of Systems Const Denies weakness ENT Denies dizziness Card Denies chest pain, Denies chest pain with activity, Denies syncope, Denies rapid heart rate, Denies pedal edema, Denies edema, Denies leg edema, Denies lightheadedness, Denies palpitations, Denies dyspnea, Denies dyspnea on exertion and Denies orthopnea Resp Denies cough, Denies dyspnea and Denies dyspnea on exertion GI Denies hematochezia and Denies change in stool character Musc Denies abnormal gait, Denies muscle cramps, Denies muscle weakness, Denies numbness, Denies radiating pain into limb and Denies tingling Neuro Denies abnormal gait, Denies dizziness, Denies syncope, Denies numbness, Denies tingling and Denies weakness Endo Denies palpitations Physical Exam Vital Signs: Last Vital Signs Pulse 52 03/02/25 12:37 BP 130/66 03/02/25 12:37 BMI result Body Mass Index 24.3 Const General: comfortable and no acute distress Orientation/consciousness: patient oriented x3 HEENT Other: Unremarkable Head: Yes normal to inspection Neck Neck: Yes normal visual inspection Chest Chest palpation & inspection: normal inspection of the chest Resp Auscultation: clear to auscultation bilaterally Cardio Palpation: normal PMI Heart sounds: S1 normal heart sound present, S2 normal heart sound present, no gallops, no murmurs and no rubs GI Palpation (GI): Soft to palpation Back/Spine/Pelvis Other: unremarkable Skin General skin exam: no rashes or lesions noted Neuro General: patient oriented x3 Extrem General: Yes normal to inspection Psych Mental Status: mental status grossly normal Assessment & Plan Assessment & Plan (1) Atherosclerotic cardiovascular disease: Code(s): I25.10 - Atherosclerotic heart disease of [place] coronary artery without angina pectoris Category: Medical (2) Stable angina: Code(s): I20.89 - Other forms of angina pectoris Category: Medical (3) Essential hypertension: Code(s): I10 - Essential (primary) hypertension Category: Medical (4) Hyperlipidemia: Code(s): E78.5 - Hyperlipidemia, unspecified Category: Medical Qualifiers: Hyperlipidemia type: unspecified Qualified Code(s): E78.5 - Hyperlipidemia, unspecified Plan Cardiac studies reviewed. Echocardiogram with LVEF of 57%. No wall motion abnormalities and otherwise unremarkable. Myocardial perfusion imaging study showed moderate intensity right coronary artery territory ischemia. Cardiac catheterization data reviewed. Mid RCA 99% stenosis with heavy calcification. 50% proximal LAD stenosis; 30-40% proximal circumflex stenosis and 30% distal left main stenosis. Collateral from apical LAD to PDA. FOr medical management. Overall, stable CAD without any angina. Continue low-dose aspirin. On low-dose beta-blockers. They have cut back in the past because of tiredness. Blood pressure stable on amlodipine. On statins and lipids are well controlled. Slightly abnormal LFTs but stable. Discussed with significant other. Discussion Notes I discussed with the patient the importance of continuing his current medication regimen to manage his coronary artery disease and prevent angina. We reviewed the need to avoid strenuous activities and to perform tasks within his physical limitations to prevent symptom exacerbation. Patient was informed and verbally consented to the use of an ambient scribe for clinic note documentation during this visit. Patient Instructions: - Continue taking aspirin, amlodipine, atorvastatin, and metoprolol as prescribed. - Avoid strenuous activities and perform tasks within your physical limitations. - Report any new chest pain or discomfort immediately. Coding Level of Care Code Est Pt Level 4 (74142) Complex EM visit Add On G2211 Diagnoses Atherosclerotic cardiovascular disease I25.10 Stable angina I20.89 Essential hypertension I10 Hyperlipidemia, unspecified hyperlipidemia type E78.5 Hyperlipidemia type: unspecified
[2025-03-02 12:37] VITALS: BP 130/66; PULSE 52; BMI 24.3
== END 2025-03-02 12:55 | disposition home or self-care (01) ==
PROVIDERS: PCP Family Medicine; Visit Provider Internal Medicine
DX: I11.9 Hypertensive heart disease without heart failure (principal); I25.118 Atherosclerotic heart disease of native coronary artery with other forms of angina pectoris; E78.5 Hyperlipidemia, unspecified
CPT/HCPCS: 99214

== ENCOUNTER 2025-04-17 08:08 | Outpatient (REF) | payer BC, SELFPAY ==
--- NOTE | ~2025-04-17 | US_ITS ---
EXAMINATION: US ABDOMEN LIMITED WITH LIVER ELASTOGRAPHY CLINICAL INFORMATION: Elevated LFTs. COMPARISON: Abdomen US 12/16/2020. No prior elastography. TECHNIQUE: Real-time imaging of the abdominal viscera. Noninvasive ultrasound liver fibrosis assessment is performed using Siemens point quantification shear wave elastography (pSWE) with a 5 MHz transducer. Multiple elastography samples are obtained. FINDINGS: PANCREAS: The visualized pancreatic head and body are normal in appearance. The remainder of the pancreas is obscured from visualization by the overlying bowel gas. LIVER: The liver demonstrates normal size, contour and diffusely increased parenchymal echogenicity. No focal lesion or intrahepatic biliary duct dilatation. The right lobe measures 4.3 cm in length. The left lobe measures 9.3 cm in length. Hepatopedal portal flow. Shear wave elastography provides a median stiffness of 1.14 m/s (reference: normal median stiffness is 0.81 - 1.22 m/s). The IQR/median stiffness to assess sampling precision is 0.06 (reference: optimal IQR/median stiffness is under 0.3). Indicates a quality data set. GALLBLADDER: The gallbladder is physiologically distended without evidence of stones, sludge, polyps, wall thickening or pericholecystic fluid. COMMON BILE DUCT: Normal in caliber measuring 0.3 cm in diameter. RIGHT KIDNEY: No hydronephrosis. No renal calculi or focal parenchymal lesions. The kidney measures 9.7 cm in maximum dimension. FREE FLUID: None seen. US/US abdomen peraza w elastography IMPRESSION: 1. Mildly diffusely increased echogenicity of the liver consistent with steatosis. No suspicious liver lesion. No biliary dilatation. 2. Liver elastography: Measurements are consistent with a high probability of normal liver stiffness. 3. Normal gallbladder and bile ducts. 4. Normal right kidney. REFERENCE: Society of Radiologists in Ultrasound Liver Stiffness Thresholds (2019): LIVER STIFFNESS THRESHOLDS: *Liver Stiffness equal or less than 1.3 m/s: High probability of being normal. *Liver Stiffness less than 1.7 m/s: In the absence of other known clinical signs, rules out compensated advanced chronic liver disease. *Liver Stiffness 1.7-2.1 m/s: Suggestive of compensated advanced chronic liver disease but need further test for confirmation. *Liver Stiffness over 2.1 m/s: Rules in compensated advanced chronic liver disease. *Liver Stiffness over 2.4 m/s: Suggestive of clinically significant portal hypertension. QUALITY OF DATA SET: *IQR/Median value equal or less than 0.30 implies a quality data set. *IQR/Median value over 0.30 implies a poor quality data set. SIGNIFICANT CHANGE FROM PRIOR EXAM: Significant change if liver stiffness measurement is 10% or greater from prior exam. OTHER CONSIDERATIONS: The stage of liver fibrosis may be overestimated in the setting of acute hepatitis, liver inflammation, elevated liver function tests, hepatic vascular congestion, obstructive cholestasis, non-fasting state, and infiltrative diseases such as amyloidosis and lymphoma. In some patients with NAFLD, the liver stiffness thresholds for compensated advanced chronic liver disease may be lower. In causes other than viral hepatitis and NAFLD, liver stiffness thresholds are not well established. Electronically signed by: Billy Alvarado MD 04/17/2025 10:51 AM EDT
== END 2025-04-17 08:09 | disposition home or self-care (01) ==
LOC: HO.US 08:08
PROVIDERS: PCP Family Medicine; Visit Provider Family Medicine
DX: R74.8 Abnormal levels of other serum enzymes (principal)
CPT/HCPCS: 76705; 76981

== ENCOUNTER → 2025-04-17 08:10 | Outpatient (BNV) | payer BC, SELFPAY | PROVIDERS: PCP Family Medicine; Visit Provider Radiology Diagnostic Radiology | DX: R94.5 Abnormal results of liver function studies (principal) | CPT/HCPCS: 76705 ==

== ENCOUNTER 2025-06-01 11:27 | Outpatient (AMB) | payer BC, SELFPAY ==
--- NOTE | 2025-06-01 11:38 | MHC.PC.OV ---
Vital Signs 06/01/25 11:45 Height 5 ft 11 in Weight 176 lb 2 oz BMI 24.6 BP 114/70 Blood Pressure Location Lt brachial Position Sitting Respiration 14 Pulse 58 Pulse Source Pulse Oximeter Temp 97.3 F Temp Source Temporal Artery Scan Pulse Oximetry (%) 98 Oxygen Delivery Method Room Air Intake Visit Reasons: f/u diabetes, HTN & Mental Status Changes Intake Note: Tr presents in the office today for a follow up to diabetes, hypertension and changes in mental status. Allergies amoxapine Adverse Reaction (Mild, Verified 06/01/25 11:43) rash Medication List - Last Reconciled 06/01/25 by Varinder Murillo MD alprazolam 0.5 mg AM and 1.0 mg PM PO 2 times a day PRN; 45 tabs per 30 days. MassPat verified. Partial refill upon request. 30 days amlodipine 2.5 mg PO DAILY aspirin 81 mg PO DAILY atorvastatin 40 mg PO BEDTIME duloxetine 60 mg PO DAILY 90 days ibuprofen 1 to 2 tabs orally every 8 hours PRN; 90 days metformin 250 mg (1/2 x 500 mg) PO DAILY 90 days metoprolol succinate ER 25 mg PO DAILY nitroglycerin 0.4 mg sublingual Q5M PRN omeprazole 20 mg PO DAILY 30 days Tobacco use date assessed: 06/01/25 Fall risk assessment: No Falls in past year Last assessed Fall Risk: 06/01/25 Dental Screening Dental Screen Date: 06/01/25 Did you have a dental visit in the last 12 months?: No Did you have a dental problem in the last 6 months where you did not have access to dental care?: No Was dental information given to patient?: Patient declined HPI f/u diabetes, HTN & Mental Status Changes HPI Details 69 y/o male presents to f/u HTN, diabetes. mental status changes. BP today 114/70, 58p. He is on metoprolol 25mg, amlodipine 2.5mg. A1c today 6.6%. He is on metformin 250mg daily. PHQ-9 12, MEGHANN-7 8 today. They note ongoing memory changes. [facility] Medical History (Updated 06/01/25 @ 12:35 by Wyatt Montalvo) Essential hypertension Hyperlipidemia Stable angina Normocytic anemia Anxiety with depression GERD (gastroesophageal reflux disease) Atherosclerotic cardiovascular disease Surgical History S/P cardiac catheterization History of appendectomy History of colonoscopy Family History Father Hx of type 1 diabetes mellitus Mother No problems noted. Family/Other Diabetes 1.5, managed as type 2 Family/Other Pancreatic cancer Family/Other Stented coronary artery Sister Cardiovascular disease Sister S/P triple vessel bypass Other Alcoholism Substance abuse Substance abuse affecting in first trimester, antepartum Social History (Updated 06/01/25 @ 11:45 by Lucille Turner [facility]) Household Members: Spouse Housing: House Alcohol intake: current Alcohol intake frequency: a few times a week Alcohol type: beer, wine, hard liquor and other Patient Tobacco Use Status: Never used Tobacco e-Cigarette/Vaping Use: Never Used Second Hand Smoke Exposure: No service: No Current occupational status: retired Current occupational exposures/hazards: No Cognitive needs: No Hearing needs: No Vision needs: No Questionnaire PHQ-9 Over the last 2 weeks, how often have you been bothered by any of the following problems? 1. Little interest or pleasure in doing things: nearly every day 2. Feeling down, depressed, or hopeless: several days 3. Trouble falling or staying asleep, or sleeping too much: nearly every day 4. Feeling tired or having little energy: several days 5. Poor appetite or overeating: several days 6. Feeling bad about yourself - or that you are a failure or have let yourself or your family down: several days 7. Trouble concentrating on things, such as reading the newspaper or watching television: several days 8. Moving or speaking so slowly that other people could have noticed. Or the opposite - being so fidgety or restless that you have been moving around a lot more than usual: several days 9. Thoughts that you would be better off or of hurting yourself in some way: not at all Total score: 12 Depression Screening Interpretation: Positive Depression Screening Done: Yes 73212 - PHQ-9 Billing: Yes Source: Developed by Drs. Lucio Adams, Melisa Kline, Paulo Ryan and colleagues, with an educational iris from [employer]. Thrive Questionnaire Date Thrive assessed: 06/01/25 What is your living situation today?: I choose not to answer this question Within the past 12 months, did the food you bought not last and you didn't have the money to get more?: Never true Within the past 12 months, did you worry whether your food would run out before you got money to buy more?: Never true Do you have trouble paying for medicines?: No Do you have trouble getting transportation to medical appointments?: No Do you have trouble paying your heating and electricity bill?: No Do you have trouble taking care of your child, family member or friend?: No Do you have trouble with day-to-day activities such as bathing, preparing meals, shopping, managing finances, etc.?: I choose not to answer this question Are you currently unemployed and looking for a job?: No Are you interested in more education?: No Please select the resources that you would like help with: None Currently or been in a relationship where the following occur: I choose not to answer THRIVE Score: 0 AUDIT C Alcohol Use Questionnaire (AUDIT-C) 1. How often do you have a drink containing alcohol?: 2-4 times a month 2. How many drinks containing alcohol do you have on a typical day when you are drinking?: 1 or 2 3. How often do you have six or more drinks on one occasion?: Never Total Score: 2 MEGHANN-7 AMB Questionnaire MEGHANN-7 Date MEGHANN - 7 assessed: 06/01/25 Feeling nervous, anxious, or on edge: 1 = Several days Not being able to stop or control worryin = Several days Worrying too much about different things: 1 = Several days Trouble relaxin = Several days Being so restless that it is hard to sit still: 0 = Not at all Becoming easily annoyed or irritable: 3 = Nearly every day Feeling afraid as if something awful might happen: 1 = Several days Total MEGHANN-7 score (0-4 normal; 5-9 mild; 10-14 moderate; 15-21 severe): 8 Source: Developed by Drs. Lucio Adams, Melisa Kline, Paulo Ryan and colleagues, with an educational iris from [employer] MEGHANN-7 Assessment Billing MEGHANN-7 Assessment Tool: MEGHANN-7 Assessment 09148 Review of Systems Const Denies chills, Denies fatigue, Denies fever(s), Denies headache(s) and Denies weakness ENT Denies dizziness and Denies headache(s) Card Denies dyspnea Resp Denies cough, Denies dyspnea, Denies wheezing and Denies other (shortness of breath) Musc Denies numbness and Denies tingling Neuro Denies dizziness, Denies headache(s), Denies numbness, Denies tingling and Denies weakness Psych Reports anxiety and Reports depression Endo Denies fatigue Aller/Immun Denies wheezing Physical exam (Primary Care) Vital Signs: Last Vital Signs Temp 97.3 F 06/01/25 11:45 Pulse 58 06/01/25 11:45 Resp 14 06/01/25 11:45 BP 114/70 06/01/25 11:45 Pulse Ox 98 06/01/25 11:45 Oxygen Delivery Method Room Air 06/01/25 11:45 BMI result Body Mass Index 24.6 Tobacco/Smoking Status: Tobacco use Status Tobacco use date assessed 06/01/25 06/01/25 11:49 Patient Tobacco Use Status Never used Tobacco 06/01/25 11:45 e-Cigarette/Vaping Use Never Used 06/01/25 11:45 PHQ-9: PHQ-9 Score PHQ-9: Total score 12 06/01/25 12:21 Depression Screening Interpretation: Positive Thrive Assessment: Date of Thrive Assessment Date Thrive assessed 06/01/25 06/01/25 11:49 Currently or been in a relationship where the following occur: I choose not to answer Const General: well developed; No acute distress Nutritional Appearance: well nourished Orientation/consciousness: patient oriented x3 [facility] Head: Yes normocephalic and Yes atraumatic Eyes General: appearance normal, both eyes and all related structures Pupils: Equal, round and reactive pupils present EOM: EOMs intact bilaterally Resp Effort & Inspection: normal respiratory effort Auscultation: clear to auscultation bilaterally Cardio Rate: regular rate Rhythm: regular rhythm Heart sounds: S1 normal heart sound present, S2 normal heart sound present, no gallops, no murmurs and no rubs Neuro General: patient oriented x3 and gait normal Cranial nerves: Yes Equal, round and reactive pupils present Psych Affect: normal affect Results AMB Hemoglobin A1c AMB Hemoglobin A1c 6.6 % Last Edit by Lucille Turner CMA on 06/01/25 12:27 Results Reviewed Results Reviewed: Laboratory Last Values Hgb A1c (Clinic) 6.6 % (4.0-6.0) H 06/01/25 11:51 Coding Level of Care Code Est Pt Level 5 (88617) Diagnoses Diabetes E11.9 Essential hypertension I10 Atherosclerotic cardiovascular disease I25.10 Elevated liver enzymes R74.8 Anxiety with depression F41.8 Memory changes R41.3 Additional Codes MEGHANN-7 Assessment Billing - MEGHANN-7 Assessment Tool: MEGHANN-7 Assessment 91302 ([id number]) PHQ-9 - 27045 - PHQ-9 Billing: Yes ([id number]) Assessment & Plan Assessment & Plan (1) Diabetes: Code(s): E11.9 - Type 2 diabetes mellitus without complications Category: Medical Plan: A1c again 6.6%. Goal is less than 7% Stable and controlled Continue metformin as prescribed (2) Essential hypertension: Code(s): I10 - Essential (primary) hypertension Category: Medical Plan: Blood pressure 114/70 is good control. Goal is less than 130/80 Continue current medication (3) Atherosclerotic cardiovascular disease: Code(s): I25.10 - Atherosclerotic heart disease of [place] coronary artery without angina pectoris Category: Medical Plan: He is on aspirin, statin and beta-pawel Controlled. Followed by cardiology Stable (4) Elevated liver enzymes: Code(s): R74.8 - Abnormal levels of other serum enzymes Category: Medical Plan: Elevated liver enzymes and recent ultrasound shows hepatic steatosis but no masses and elastography is within normal range Continue working on good hydration, weight control, avoid excessive Tylenol and excessive alcohol Will continue to monitor (5) Anxiety with depression: Code(s): F41.8 - Other specified anxiety disorders Category: Medical Plan: Chronic anxiety and depression. Uses alprazolam for anxiety Patient has no SI/HI and no intention of harm Declines referral to a therapist Will continue to monitor (6) Memory changes: Code(s): R41.3 - Other amnesia Category: Medical Plan: Ongoing memory changes. These appear to be longstanding or even lifelong. May be secondary to mood disorder such as anxiety or even an undiagnosed ADD Mini cog test is borderline. Score of 3. He remembers 1 of to word recall words and is able to draw an appropriate clock an since the hands according to he has intention but with a small amount of conversation and distraction by his , he remembers wrong instruction. Patient says ?I think use and set the time to 10 of 11 or may be 10 past 11 . Instruction was 10 past 11 and patient drawn clock with time sick to 10 of 11. Again, likely represents some difficulty with memory or focus. Cognitive testing intact. Discussed with patient that we could have him evaluated by neuropsychiatry but he declines this at this time. Will continue to monitor Orders: Orders AMB Hemoglobin A1c Today E11.9 - Type 2 diabetes mellitus without complications
[2025-06-01 11:45] VITALS: BP 114/70; PULSE 58; RESP 14; TEMP 36.3; O2SAT 98; BMI 24.6
== END 2025-06-01 12:46 | disposition home or self-care (01) ==
LOC: HO.HMCFM 11:28
PROVIDERS: PCP Family Medicine; Visit Provider Family Medicine
DX: E11.9 Type 2 diabetes mellitus without complications (principal)

== ENCOUNTER → 2025-06-01 11:27 | Outpatient (BNVA) | payer BC, SELFPAY | PROVIDERS: PCP Family Medicine; Visit Provider Family Medicine | DX: E11.9 Type 2 diabetes mellitus without complications (principal); I10 Essential (primary) hypertension; I25.10 Atherosclerotic heart disease of native coronary artery without angina pectoris; R74.8 Abnormal levels of other serum enzymes; F41.8 Other specified anxiety disorders; R41.3 Other amnesia; Z79.82 Long term (current) use of aspirin; Z79.84 Long term (current) use of oral hypoglycemic drugs; Z79.899 Other long term (current) drug therapy; Z13.31 Encounter for screening for depression; Z13.39 Encounter for screening examination for other mental health and behavioral disorders | CPT/HCPCS: 83036; 96127 ==

== ENCOUNTER 2025-06-15 14:51 | Outpatient (AMB) | payer BC, SELFPAY ==
--- NOTE | 2025-06-15 14:57 | A.OFFVIS_ITS ---
Vital Signs 06/15/25 15:03 Height 5 ft 11 in Weight 173 lb BMI 24.1 BP 136/62 Blood Pressure Location Rt brachial Position Sitting Pulse 52 Pulse Source Pulse Oximeter Pulse Oximetry (%) 99 Oxygen Delivery Method Room Air Intake Visit Reasons: GERD, initial eval. [facility] 2022. Intake Note: Returning pt for initial eval of GERD. [facility] 2022. Pt is currently trialing PPI CC: C.O. intermittent GERD + CIC sx. Pt states that the PPI is somewhat helpful but he does not take it consistently. 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 [facility] 2022.: Details: LAST VISIT: 03/07/2023 Screening for colon cancer Patient denies any GI. Patient reports having symptoms of shortness of breath when mowing the lawn. Sent by PCP to business continuity consultant. Patient has an appointment next week. We will wait for risk stratification before sending him for procedure. May book the procedure for June.? Denies any issues with anesthesia in the past.? Denies any history of sleep apnea.? No history infectious diseases in the past or present.? Not on any anticoagulation therapy.? No family or personal history of colon cancer or polyps.? Patient denies melena, hematochezia, unintentional weight loss or ribbon like stools.? Discussed at length the pre-procedure,? prep, diet & medications as well as what to expect prior, during and after the procedure.?? Stressed the importance of good bowel prep. ?Recommended the use of Vaseline or Calmoseptine OTC & baby wipes with bowel movements to promote comfort.? ?Patient verbalizes understanding and agrees to plan of care.? He was given the opportunity to ask questions and all questions answered.? We will see him after the procedure.? Plan New bisacodyl (Dulcolax (bisacodyl)) take 2 tabs at noon the day before your colonoscopy 10 mg (2 x 5 mg) PO ONCE 2 tabs 0RF 1 day Z12.11 - Encounter for screening for malignant neoplasm of colon polyethylene glycol 3350 (Miralax) As directed by gastroenterology department at [facility] 238 grams PO ONCE 238 grams 0RF Z12.11 - Encounter for screening for malignant neoplasm of colon Discontinued simethicone Discontinued Reason: Patient no longer taking 125 mg PO BID-QID PRN 120 caps 3RF abdominal distention K21.9 - Gastro-esophageal reflux disease without esophagitis COLONOSCOPY Findings: Terminal Ileum-normal Cecum:normal Ascending Colon: 6-7 mm sessile polyp removed with cold forceps Transverse Colon -normal Descending Colon: 10 mm sessile polyp removed with cold snare but not retrieved Sigmoid Colon: moderate severe diverticulosis Rectum: Retroflexion with medium sized internal hemorrhoids seen, grade I, 11-12 mm sessile polyp removed from mid rectum Anorectum - normal Colon preparation: Colby Bowel Preparation Scale Right colon; 2 Transverse colon: 2 Left colon; 2 (0 = Unprepared colon segment with mucosa not seen due to solid stool that cannot be cleared. 1 = Portion of mucosa of the colon segment seen, but other areas of the colon segment not well seen due to staining, residual stool and/or opaque liquid. 2 = Minor amount of residual staining, small fragments of stool and/or opaque liquid, but mucosa of colon segment seen well. 3 = Entire mucosa of colon segment seen well with no residual staining, small fragments of stool or opaque liquid) Impression and Post Procedure Diagnosis: diverticulosis colon polyps internal hemorrhoids Plan: High fiber diet leaflet Avoid straining at stool, epsom salts and sitz bath, anusol supps or cream Repeat Colonoscopy in 5 years due to polyps or earlier if clinically indicated PATHOLOGY RESULTS Diagnosis A. Colon, ascending, polypectomy: Tubular adenoma; negative for high-grade dysplasia. B. Rectum, polypectomy: Tubular adenoma; negative for high-grade dysplasia TODAY'S VISIT: Patient is here today for requested visit. Patient had colonoscopy in October of 2023 that showed tubular adenoma without high-grade dysplasia or carcinoma. Patient was recommended to return for colonoscopy in 5 years, sooner if clinically necessary. Patient denies any melena, hematochezia, unintentional weight loss or ribbon like stools. Patient reports acid reflux with occasional dyspepsia without dysphagia or odynophagia. Patient reports that when he does take omeprazole his symptoms are suppressed, however does not feel like day completely go away. Patient reports that he only takes omeprazole as needed. Patient denies any dysphagia or odynophagia. Reports occasional constipation. Currently he is not taking anything to help him move his bowels. Patient denies any nausea or vomiting. Patient is not restraining from any food. Occasionally will have snack in the evening. Patient denies diarrhea, mucus in his stools. No issues with anesthesia last year. Patient was cleared by Cardiology. Currently he is on low-dose aspirin. [facility] Medical History Essential hypertension Hyperlipidemia Stable angina Normocytic anemia Anxiety with depression GERD (gastroesophageal reflux disease) Atherosclerotic cardiovascular disease Surgical History S/P cardiac catheterization History of appendectomy History of colonoscopy Family History Father Hx of type 1 diabetes mellitus Mother No problems noted. Family/Other Diabetes 1.5, managed as type 2 Family/Other Pancreatic cancer Family/Other Stented coronary artery Sister Cardiovascular disease Sister S/P triple vessel bypass Other Alcoholism Substance abuse Substance abuse affecting in first trimester, antepartum Social History Household Members: Spouse Housing: House Alcohol intake: current Alcohol intake frequency: a few times a week Alcohol type: beer, wine, hard liquor and other Patient Tobacco Use Status: Never used Tobacco e-Cigarette/Vaping Use: Never Used Second Hand Smoke Exposure: No service: No Current occupational status: retired Current occupational exposures/hazards: No Cognitive needs: No Hearing needs: No Vision needs: No Review of Systems Const Denies weight gain and Denies weight loss ENT Reports no additional complaints, Denies dysphagia and Denies odynophagia Card Reports no additional complaints Resp Reports no additional complaints GI Denies abdominal pain, Denies belching, Denies melena, Denies bloating, Denies change in bowel habits, Denies dysphagia, Denies excessive flatus, Denies dyspepsia, Reports heartburn, Denies diarrhea, Denies loose stools, Denies nausea, Denies odynophagia and Denies vomiting Reports no additional complaints Musc Reports no additional complaints Neuro Reports no additional complaints Psych Reports no additional complaints Endo Reports no additional complaints Physical Exam Vital Signs: Last Vital Signs Pulse 52 06/15/25 15:03 BP 136/62 06/15/25 15:03 Pulse Ox 99 06/15/25 15:03 Oxygen Delivery Method Room Air 06/15/25 15:03 BMI result Body Mass Index 24.1 Const General: healthy appearing, no acute distress and well developed Nutritional Appearance: well nourished Orientation/consciousness: patient oriented x3 Resp Effort & Inspection: normal respiratory effort, able to speak in complete sentences, no tracheal deviation and symmetric chest movement Auscultation: clear to auscultation bilaterally Cardio Rate: regular rate GI Inspection: Yes normal to inspection and No distended Palpation (GI): Soft to palpation, not firm, nontender and No hepatosplenomegaly present Auscultation: normal bowel sounds General: Yes no CVA tenderness Back/Spine/Pelvis Back: no CVA tenderness Skin General skin exam: elasticity normal, turgor normal and dry skin Neuro General: patient oriented x3 Psych Appearance: grossly normal Mental Status: mental status grossly normal Assessment & Plan Assessment & Plan (1) GERD (gastroesophageal reflux disease): Code(s): K21.9 - Gastro-esophageal reflux disease without esophagitis Category: Medical Qualifiers: Esophagitis presence: without esophagitis Qualified Code(s): K21.9 - Gastro-esophageal reflux disease without esophagitis (2) Constipation: Code(s): K59.00 - Constipation, unspecified Qualifiers: Constipation type: slow transit constipation Qualified Code(s): K59.01 - Slow transit constipation (3) Postprandial epigastric pain: Code(s): R10.13 - Epigastric pain Plan Patient will go for upper endoscopy. Will evaluated for gastritis, esophagitis, duodenitis, gastric or peptic ulcers, Barretts, H pylori. Patient will start taking pantoprazole daily. Avoid dietary triggers and late night snacking. Staying upright for minimum 3 hours after meals discussed with patient. Patient denies any cardiac or respiratory symptoms. He is on low-dose aspirin. Patient will be seen after the procedure. He is agreeable to this plan and verbalizes understanding of instructions. He was given the opportunity to ask questions and all questions answered. Thank you for allowing me to participate in his care Orders: Referrals GI Procedure Notification Z12.11 - Encounter for screening for malignant neoplasm of colon Medications: New pantoprazole take one tablet half an hour before breakfast 40 mg PO DAILY 90 tabs 2RF K21.9 - Gastro-esophageal reflux disease without esophagitis Discontinued omeprazole Discontinued Reason: Doctor's Order 20 mg PO DAILY 30 days 30 caps 6RF Coding Level of Care Code Est Pt Level 4 (82438) Complex EM visit Add On G2211 Diagnoses Gastroesophageal reflux disease without esophagitis K21.9 Esophagitis presence: without esophagitis Slow transit constipation K59.01 Constipation type: slow transit constipation Postprandial epigastric pain R10.13 Time Spent (min) 35 Comment 25 minutes spent with patient and additional 10 minutes spent reviewing his records
[2025-06-15 15:03] VITALS: BP 136/62; PULSE 52; O2SAT 99; BMI 24.1
== END 2025-06-15 15:29 | disposition home or self-care (01) ==
PROVIDERS: PCP Family Medicine; Visit Provider Nurse Practitioner Family
DX: K21.9 Gastro-esophageal reflux disease without esophagitis (principal); K59.01 Slow transit constipation; R10.13 Epigastric pain
CPT/HCPCS: 99214